=== PATIENT | female | born 1965 | race Caucasian/White ===

== ENCOUNTER 2017-01-12 16:35 | Emergency (ER) | payer OTHER ==
[~2017-01-12 16:35] MED LIST: ALBUTEROL0.09 MG/A2 INH; AMOXICILLIN500 MG PO; ANTIVERT/2525 MG PO; CIPROFLOXACIN500 MG PO; DIFLUCAN150 MG PO; FLEXERIL10 MG PO; HYDROCODONE BIT1 T11 PO; LIDEX0.05% T; MEDROL DOSEPAK4 MG PO; MIRALAX POWDER17 G1 PO; MOTRIN800 MG PO; NAPROSYN500 MG PO; NKHM; PERCOCET 325 MG1 TA2 PO; PHENERGAN25 M1 PO; PREDNICOT20 MG PO; TESSALON PERLE100 M1 PO; VIBRAMYCIN100 MG PO; VICODIN 5/500 505 MG PO; ZOFRAN ODT4 MG SL; ZOFRAN4 MG PO
[2017-01-12 16:36] VITALS: BP 141/83
[2017-01-12] MEDS ORDERED: NEURONTIN300 MG PO (16:36)
[2017-01-12] MEDS ORDERED: METHYLPRED-DP4 MG PO (16:37)
[2017-01-12 17:13] LABS: BASO # 0.1 10*3/uL (0.0-0.1); BASO % 0.6 % (0.0-1.0); EOS % 0.3 % (1.0-4.0); HEMATOCRIT 42.6 % (37.0-47.0); HEMOGLOBIN 13.9 g/dl (12.0-16.0); LYMPH # 4.2 10*3/uL (1.3-4.4); LYMPH % 38.6 % (27.0-41.0); MEAN CELL VOLUME 90.8 fl (81.0-99.0); MEAN CORPUSCULAR HGB 29.6 pg (27.0-31.0); MEAN CORPUSCULAR HGB CONC 32.6 g/dl (33.0-37.0); MEAN PLATELET VOLUME 10.8 fl (9.6-12.3); MONO # 0.6 10*3/uL (0.1-1.0); MONO % 5.1 % (3.0-9.0); NEUT % 55.1 % (47.0-73.0); PLATELET COUNT AUTOMATED 281 10*3/uL (130-400); RED BLOOD COUNT 4.69 10*6/uL (4.10-5.10); RED CELL DISTRI WIDTH 13.4 % (0-14.5); WHITE BLOOD COUNT 10.9 10*3/uL (4.8-10.8)
[2017-01-12 17:20] LABS: PROTHROMBIN TIME 10.4 SECONDS (9.0-12.4)
[2017-01-12 17:28] LABS: ALBUMIN 3.8 gm/dl (3.1-4.5); ALKALINE PHOSPHATASE 54 U/L (45-117); BILIRUBIN, TOTAL 0.9 mg/dl (0.2-1.0); BUN 13 mg/dl (7-24); CARBON DIOXIDE 29 mmol/L (21-32); CHLORIDE 106 mmol/L (98-107); EST GLOM FILT AFRICAN AMERICAN > 60 ml/min; GLUCOSE 141 mg/dL (65-99); POTASSIUM 3.8 mmol/L (3.5-5.1); SGOT/AST 18 IU/L (3-35); SGPT/ALT 30 U/L (12-78); SODIUM 143 mmol/L (136-145); TOTAL PROTEIN 7.4 gm/dL (6.4-8.2)
== END 2017-01-12 18:46 | disposition home or self-care (01) ==
LOC: ED 16:35
PROVIDERS: Nurse Practitioner Family
DX: R60.0 Localized edema (principal); Z88.6 Allergy status to analgesic agent; Z90.49 Acquired absence of other specified parts of digestive tract; Z79.899 Other long term (current) drug therapy

== ENCOUNTER → 2017-01-29 | Outpatient (CLI) | payer OTHER ==
[~2017-01-29] MED LIST changes: +METHYLPRED-DP4 MG PO; +NEURONTIN300 MG PO
[2017-01-29 14:51] LABS: BASO # 0.1 10*3/uL (0.0-0.1); BASO % 0.9 % (0.0-1.0); EOS # 0.3 10*3/uL (0.0-0.4); EOS % 3.3 % (1.0-4.0); HEMATOCRIT 42.5 % (37.0-47.0); HEMOGLOBIN 14.1 g/dl (12.0-16.0); LYMPH # 3.6 10*3/uL (1.3-4.4); LYMPH % 46.8 % (27.0-41.0); MEAN CELL VOLUME 90.2 fl (81.0-99.0); MEAN CORPUSCULAR HGB 29.9 pg (27.0-31.0); MEAN CORPUSCULAR HGB CONC 33.2 g/dl (33.0-37.0); MEAN PLATELET VOLUME 10.7 fl (9.6-12.3); MONO # 0.5 10*3/uL (0.1-1.0); MONO % 6.2 % (3.0-9.0); NEUT # 3.2 10*3/uL (2.3-7.9); NEUT % 42.7 % (47.0-73.0); PLATELET COUNT AUTOMATED 277 10*3/uL (130-400); RED BLOOD COUNT 4.71 10*6/uL (4.10-5.10); RED CELL DISTRI WIDTH 13.1 % (0-14.5); WHITE BLOOD COUNT 7.6 10*3/uL (4.8-10.8)
[2017-01-29 15:07] LABS: ALBUMIN 3.9 gm/dl (3.1-4.5); ALKALINE PHOSPHATASE 63 U/L (45-117); BILIRUBIN, TOTAL 0.9 mg/dl (0.2-1.0); BUN 15 mg/dl (7-24); CARBON DIOXIDE 27 mmol/L (21-32); CHLORIDE 109 mmol/L (98-107); CHOLESTEROL 203 mg/dL (<200); EST GLOM FILT AFRICAN AMERICAN > 60 ml/min; GLUCOSE 92 mg/dL (65-99); HDL CHOLESTEROL 44 mg/dl (40-60); LDL CHOLESTEROL 129 mg/dL (9-159); POTASSIUM 4.3 mmol/L (3.5-5.1); SGOT/AST 24 IU/L (3-35); SGPT/ALT 32 U/L (12-78); SODIUM 143 mmol/L (136-145); TOTAL PROTEIN 7.7 gm/dL (6.4-8.2); TRIGLYCERIDES 149 mg/dl (<150); VLDL CHOLESTEROL 30 mg/dL (6-40)
[2017-01-31 00:09] LABS: FECAL WBC Final report (None Seen)
== END | disposition home or self-care (01) ==
LOC: LAB 13:48
PROVIDERS: Internal Medicine
DX: Z01.419 Encounter for gynecological examination (general) (routine) without abnormal findings (principal); K52.9 Noninfective gastroenteritis and colitis, unspecified; E66.01 Morbid (severe) obesity due to excess calories; I10 Essential (primary) hypertension

== ENCOUNTER → 2017-02-01 | Outpatient (CLI) | payer OTHER | END | disposition home or self-care (01) | LOC: MAMMO 00:37 | DX: Z12.31 Encounter for screening mammogram for malignant neoplasm of breast (principal) ==

== ENCOUNTER → 2017-02-08 | Day surgery (SDC) | payer OTHER ==
[~2017-02-08] VITALS: Ht 160 cm; Wt 113.4 kg
[~2017-02-08] MED LIST changes: +GAVILYTE-G WI4000 M1 PO
--- NOTE | ~2017-02-08 | PROC NOTE ---
[place], [place] PROCEDURE NOTE NAME: DONAVAN STANFORD UNIT #: [id number] ROOM: DOCTOR: MAX GOMEZ MD BIRTHDATE: [birth year] DOS: 02/08/2017 PREOPERATIVE DIAGNOSIS: Chronic diarrhea. POSTOPERATIVE DIAGNOSIS: Sigmoid polyps, diverticulosis, internal hemorrhoids. PROCEDURE: Colonoscopy. ENDOSCOPIST: Max Gomez MD NETWORK CONTRACT MANAGER: MS3. ANESTHESIA: MAC. INDICATIONS: This is a 51-year-old lady who is here for a colonoscopy for chronic diarrhea. The procedure and its complications were explained to the patient in detail preoperatively. Complications that were discussed included but were not limited to bleeding, colon perforation, and prolonged pain. She agreed to proceed. DESCRIPTION OF PROCEDURE: After identifying the patient, the patient was brought to the endoscopy suite and placed in the left lateral position. After IV sedation was administered, a timeout procedure was called and a digital rectal exam was performed, which was within normal limits. An adult colonoscope was now introduced into the anal canal and advanced sequentially into the rectum, sigmoid colon, descending colon, transverse colon and ascending colon up to the cecum. The prep was found to be optimal. Upon reaching the cecum, the scope was withdrawn. Total withdrawal time was approximately 7 minutes. During the procedure withdrawal, there was mild sigmoid diverticulosis that was visualized as well as 2 small polyps that were visualized at 25 cm from the anal verge. Both of these were biopsied and sent for histopathological diagnosis. After hemostasis was confirmed, the scope was withdrawn and upon withdrawal in the rectal area, there was found to be uncomplicated internal hemorrhoids. After the scope was withdrawn, the patient was taken to the recovery room in stable fashion. There were no complications. Dr. Max Gomez, the attending surgeon, was present throughout the operating case. Based on these findings, the patient is recommended to have another colonoscopy in 3 years or sooner if she has any symptoms. I will discuss these findings with the patient when she sees me in the office in 2-3 weeks. [place], [place] PROCEDURE NOTE NAME: DONAVAN STANFORD UNIT #: [id number] ROOM: DOCTOR: MAX GOMEZ MD BIRTHDATE: [birth year] Max Gomez MD CM:MEMO:PROCEDURE NOTE [id number] MAX GOMEZ MD
[2017-02-08 07:47] VITALS: BP 131/75
[2017-02-08 08:25] VITALS: BP 131/70
[2017-02-08 08:40] VITALS: BP 120/72
[2017-02-08 08:55] VITALS: BP 131/72
== END | disposition home or self-care (01) ==
LOC: SDC 02-07 08:45
DX: K63.5 Polyp of colon (principal); K52.9 Noninfective gastroenteritis and colitis, unspecified; K57.30 Diverticulosis of large intestine without perforation or abscess without bleeding; K64.8 Other hemorrhoids; M19.90 Unspecified osteoarthritis, unspecified site; F32.9 Major depressive disorder, single episode, unspecified; Z87.01 Personal history of pneumonia (recurrent); M79.7 Fibromyalgia; Z96.652 Presence of left artificial knee joint; Z98.890 Other specified postprocedural states

== ENCOUNTER 2017-02-11 11:35 | Emergency (ER) | payer OTHER ==
[~2017-02-11] VITALS: Wt 117.9 kg
[~2017-02-11 11:35] MED LIST changes: -GAVILYTE-G WI4000 M1 PO
[2017-02-11 11:58] VITALS: BP 155/98
[2017-02-11] MEDS ORDERED: METHYLPRED-DP4 MG PO (11:58)
[2017-02-11] MEDS ORDERED: GAVILYTE-G WI4000 M1 PO (11:58)
[2017-02-11 12:59] LABS: ALBUMIN 3.8 gm/dl (3.1-4.5); ALKALINE PHOSPHATASE 67 U/L (45-117); BASO # 0.1 10*3/uL (0.0-0.1); BASO % 0.9 % (0.0-1.0); BILIRUBIN, TOTAL 0.6 mg/dl (0.2-1.0); BUN 9 mg/dl (7-24); CARBON DIOXIDE 29 mmol/L (21-32); CHLORIDE 105 mmol/L (98-107); EOS # 0.2 10*3/uL (0.0-0.4); EOS % 3.2 % (1.0-4.0); EST GLOM FILT AFRICAN AMERICAN > 60 ml/min; GLUCOSE 99 mg/dL (65-99); HEMATOCRIT 43.7 % (37.0-47.0); HEMOGLOBIN 14.5 g/dl (12.0-16.0); LYMPH % 52.9 % (27.0-41.0); MEAN CELL VOLUME 89.4 fl (81.0-99.0); MEAN CORPUSCULAR HGB 29.7 pg (27.0-31.0); MEAN CORPUSCULAR HGB CONC 33.2 g/dl (33.0-37.0); MONO # 0.5 10*3/uL (0.1-1.0); MONO % 6.1 % (3.0-9.0); NEUT # 2.8 10*3/uL (2.3-7.9); NEUT % 36.8 % (47.0-73.0); PLATELET COUNT AUTOMATED 300 10*3/uL (130-400); POTASSIUM 4.2 mmol/L (3.5-5.1); RED BLOOD COUNT 4.89 10*6/uL (4.10-5.10); SGOT/AST 26 IU/L (3-35); SGPT/ALT 34 U/L (12-78); SODIUM 142 mmol/L (136-145); WHITE BLOOD COUNT 7.6 10*3/uL (4.8-10.8)
[2017-02-11 14:16] LABS: BILIRUBIN NEGATIVE (NEGATIVE); BLOOD NEGATIVE (NEGATIVE); CLARITY CLEAR (CLEAR); COLOR YELLOW (YELLOW); GLUCOSE NEGATIVE (NEGATIVE); KETONE NEGATIVE (NEGATIVE); LEUKO ESTERASE NEGATIVE (NEGATIVE); NITRITE NEGATIVE (NEGATIVE); PROTEIN NEGATIVE (NEGATIVE); SPECIFIC GRAVITY 1.015 (1.005-1.030); UROBILINOGEN 0.2 E.U./dl (0.2-1.0)
[2017-02-11 14:23] LABS: URINE REFLEX COMMENT NO (NO); WBC 0-2 wbc/hpf (0-5)
== END 2017-02-11 15:04 | disposition home or self-care (01) ==
LOC: ED 11:35
PROVIDERS: Emergency Medicine
DX: M25.552 Pain in left hip (principal); Z88.6 Allergy status to analgesic agent; Z90.49 Acquired absence of other specified parts of digestive tract

== ENCOUNTER 2017-03-23 11:58 | Inpatient (IN) | payer OTHER ==
[2017-03-23] VITALS (7 sets, daily range): BP systolic 128–162; BP diastolic 61–98
[~2017-03-23] VITALS: Ht 160 cm; Wt 116.1 kg
--- NOTE | ~2017-03-23 | O ---
[place], [place] OPERATIVE NOTE NAME: DONAVAN STANFORD UNIT #: [id number] ROOM: 520 DOCTOR: KELLY AGUILAR,PEREZ BIRTHDATE: [birth year] DOS: 03/27/2017 INDICATIONS: The patient has presented with atypical chest pain and epigastric distress. Cardiologic workup, stress test has been negative. The patient has been taking an Aleve daily. PAST MEDICAL HISTORY: Also associated with fibromyalgia. PROCEDURE: Today's procedure part of investigation is panendoscopy plus biopsy. PREMEDICATION: Versed and Diprivan. SCOPE: Olympus forward-viewing gastroscope Q10 video. REPORT: After putting the patient in the left lateral position and after application of lubricant to the scope, the scope was introduced. Thereafter, under direct visualization, I advanced through the length of esophagus without difficulty. Cervical, thoracic, and distal esophagus within normal limits. At 2 cm, hiatal hernia was identified. Gastric pouch was entered along the lesser curvature. Antral erosions secondary to Aleve, nonsteroidal anti-inflammatory identified. Duodenal bulb, second and third part within normal limits. Scope was withdrawn along the greater curvature. GI reflection of the scope reveals cardia to be benign, hiatal hernia confirmed. Photographic series obtained. Antral biopsy was obtained. Erosions documented. The patient was extubated after air was removed. IMPRESSION: Small hiatal hernia, gastritis, gastric erosions. PLAN AND DISCUSSION: Protonix 40 mg 1 every day. Gaviscon extra strength 1 at bedtime. Antireflux with elevation of the head of the bed 6 inches all time. Abstinence from solid food ingestion 5 hours prior to retiring and clinical reassessment. PEREZ MENDOZA MD CM:OPRECORD:OPERATIVE NOTE 1132 [id number] PEREZ MENDOZA MD 03/27/17 1152 interface
--- NOTE | ~2017-03-23 | PR ---
[place], [place] PROGRESS NOTE [id number] UNIT #: [id number] ROOM: 520 DOCTOR: NIXON MOREIRAWILLI BIRTHDATE: [birth year] DOS: 03/26/2017 SUBJECTIVE: This is a 51-year-old female who was seen and evaluated today. Upon assessment the patient is noted awake and alert and responsive. She denies any complaints of nausea, vomiting, diarrhea, dizziness, shortness of breath. The patient stated she continues with right-sided chest pain, stating it is intermittent in nature with no other accompanying symptoms. OBJECTIVE: VITAL SIGNS: Current vital signs included a temperature of 98.2, pulse 51, respirations 20, blood pressure 149/85, pulse oximetry 99% on room air. GENERAL: The patient is noted awake and alert, no acute distress noted. HEENT: Head normocephalic, atraumatic. Eyes: No drainage. Sclerae are nonicteric, no drainage. ENT: Oropharynx is clear. Septum is midline. No scars or masses noted. NECK: Noted without lesions. Trachea is midline, supple, nontender. RESPIRATORY: Lungs are noted to be diminished. No wheezing, no rhonchi. Breath sounds are noted normal and the patient is noted without any respiratory distress. CARDIAC: The patient is noted have regular rate and rhythm. No gallops. No pedal edema noted in the lower extremities. ABDOMEN: Soft, nontender. Bowel sounds are present. No rebounding or guarding. EXTREMITIES: Noted without edema, erythema, cyanosis or clubbing. NEUROLOGICAL: The patient is noted awake and alert, ambulates without difficulty. No focal deficit is noted. Cranial nerves 2-12 are noted grossly intact. PSYCHOLOGICAL: The patient is noted to be a good historian exhibits normal affect. SKIN: Warm and dry, no rashes, no lesions. LABORATORY DATA: WBC 8.3, RBC 4.98, hemoglobin 14.5, hematocrit 44.9, platelets of 261. Sodium 139, potassium 4.2, chloride 102, CO2 of 32, BUN 21, creatinine 0.88, GFR greater than 60, glucose of 107, and calcium 9.1. DIAGNOSTIC STUDIES: EKG was noted completed with left ventricle noted normal size, mild concentric left ventricular hypertrophy, normal LV segmental wall motion, left ventricular systolic function is normal. Stress test noted with no evidence of ischemia. The patient noted with a low-risk myocardial perfusion examination. ASSESSMENT AND PLAN: 1. Chest pain, rule out acute myocardial infarction. 2. Abdominal pain. 3. Hypertension. 4. Depression. 5. Obesity. TREATMENT PLAN: The patient continues to be n.p.o. today as the echo and stress test were performed waiting on Dr. Copeland for EGD. We will continue to monitor. [place], [place] PROGRESS NOTE NAME: DONAVAN STANFORD UNIT #: [id number] ROOM: [facility] DOCTOR: WILLI MEYERS RN BIRTHDATE: [birth year] NEGRITO ODONNELL MARYSE DEE DO CM:PNTRANS [id number] WILLI MOREIRA 03/26/17 1414 interface
--- NOTE | ~2017-03-23 | CON ---
[place], [place] REPORT OF CONSULTATION NAME: DONAVAN STANFORD UNIT #: [id number] ROOM: 520 DOCTOR: PEREZ MENDOZA MD BIRTHDATE: [birth year] DOS: HISTORY OF PRESENT ILLNESS: This is a 51-year-old who has presented with chief complaint of atypical chest pain, parasternal, subxiphoid location. The patient has been on Aleve daily and no antiacid medications. The patient had a panel of basic workup done, white blood cell was 8, H and H of 14 and 43. Lactic acid was 2.2. INR was 1.1. Comprehensive metabolic panel, GFR is within normal limits. Magnesium is 2.3. Liver function test, bilirubin is 1.4. C-reactive protein is 0.3. Troponin was normal. Chest x-ray reviewed, no acute pathology was identified. Lactic acid followup 1.2. CT scan of the head, no acute intracranial pathology. Troponin serially was done and was all within normal limits. Myocardial SPECT study was done and note no significant evidence of ischemia or myocardial insult was identified. White blood cell count was within normal limits. PAST MEDICAL HISTORY: Associated hypertension, depression, fibromyalgia, gait disturbances was noticed, also associated borderline obesity. PAST SURGICAL HISTORY: , ablation, cholecystectomy, tonsillectomy, left knee prosthesis. SOCIAL HISTORY: Only consuming marijuana. ALLERGIES: MORPHINE AND TAPE. FAMILY HISTORY: Noncontributory. MEDICATIONS: List has been reviewed in addition to Aleve daily. REVIEW OF SYSTEMS: HEENT: Denies double vision, blurred vision. RESPIRATORY: Denies shortness of breath. CARDIOVASCULAR: Denies chest pain. DIGESTIVE SYSTEM: Epigastric parasternal pain. PHYSICAL EXAMINATION: VITAL SIGNS: Nondistressed, nontoxic patient. HEENT: Head normocephalic, nontraumatic. Mouth and buccal mucosa benign. NECK: Supple, no thyromegaly, no cervical lymphadenopathy. CHEST: Symmetric anatomy, equal expansion. No wheeze, no rhonchi. HEART: Normal sinus rhythm, no gallop, no murmur. ABDOMEN: Obese, large, soft. No hepato-organomegaly. Bowel sounds present. EXTREMITIES: No cyanosis. No pedal edema. NEUROLOGIC: Alert, oriented to time, place, person. IMPRESSION: Atypical chest pain, ruling out hiatal hernia, ruling out gastroesophageal reflux versus peptic ulcer disease, on the other hand, dysmotility is kept in mind. PLAN AND DISCUSSION: We are going to consider endoscopic assessment and if [place], [place] REPORT OF CONSULTATION NAME: DONAVAN STANFORD UNIT #: [id number] ROOM: [facility] DOCTOR: PEREZ MENDOZA MD BIRTHDATE: [birth year] negative, then differential would be adjusted. PEREZ MENDOZA MD CM:CONSTR:REPORT OF CONSULTATION 1118 03/27/17 1706 interface
--- NOTE | ~2017-03-23 | CON ---
[place], [place] REPORT OF CONSULTATION NAME: DONAVAN STANFORD UNIT #: [id number] ROOM: 520 DOCTOR: PHIL MORE MD BIRTHDATE: [birth year] DOS: 03/25/2017 Referred by the hospitalist physicians and Dr. Landin. REASON FOR CONSULTATION: Chest pain. HISTORY OF PRESENT ILLNESS: The patient is a 51-year-old woman without any previous history of coronary artery disease. She does have risk factors of obesity, hypertension, and prediabetes. She does not have any first degree relatives with early coronary disease and does not smoke. The patient states that for the last few months, she has had problems with peripheral edema and was noted to have hypertension. She was placed on a thiazide diuretic with improvement of her edema and blood pressure control. She was otherwise well until 03/23/2017. She had just finished a small meal and taken her medications when she noticed a sharp pain in the center of her chest, which did not radiate. It was associated with diaphoresis and lightheadedness, but no nausea or vomiting. The pain was not pleuritic. The patient sat still and did not take deep breaths or eat or drink anything while she had the pain. The pain resolved spontaneously after about an hour. She became concerned and came to the emergency room where her electrocardiogram was normal and serial cardiac biomarkers have been normal as well. On March 24, she had a similar pain at rest without eating. The pain resolved spontaneously after about 30 minutes. Currently, the patient is comfortable, although she does occasionally get a pressure sensation in her chest at rest. She was given an antacid since admission and states that this has helped somewhat. PAST MEDICAL HISTORY: Includes 1. Recently documented essential hypertension. 2. Peripheral edema, which resolved with hydrochlorothiazide therapy. 3. History of right hydronephrosis and kidney surgery. 4. Status post cholecystectomy. 5. History of left knee surgery on 2 occasions. 6. Tonsillectomy. 7. Prediabetes with hemoglobin A1c 6.4. 8. History of depression. 9. No previous history of myocardial infarction or stroke. MEDICATIONS: Prior to admission, gabapentin 300 mg t.i.d., hydrochlorothiazide 25 mg daily and venlafaxine 75 mg daily. ALLERGIES: The patient has allergies to TAPE and MORPHINE. FAMILY HISTORY: The patient's mother had transient ischemic attacks. Her father of cancer in his mid 50s. He did not have a history of heart disease. An aunt had a brain aneurysm, another aunt of complications of diabetes. [place], [place] REPORT OF CONSULTATION NAME: DONAVAN STANFORD UNIT #: [id number] ROOM: [facility] DOCTOR: PHIL MORE MD BIRTHDATE: [birth year] REVIEW OF SYSTEMS: The patient denies diplopia, loss of vision, or focal weakness. She has had mild headache. She denies nausea or vomiting. She denies fevers, chills, sweats or recent weight change; however, she has been gradually losing weight over the last few months intentionally. She denies nausea or vomiting. She denies fevers or chills. She denies hemoptysis or hematemesis. She denies cough. She denies change in bowel or bladder habits. She denies any blood in her urine or stools. She has had recent peripheral edema, but this has improved since she started hydrochlorothiazide. She denies any skin rashes. She does have pain in her left hip which she attributes to arthritis and a hip spur. She denies any syncope, but did feel lightheaded. She denies vertigo. The remainder of the review of systems is negative except as noted above. SOCIAL HISTORY: The patient does not smoke, but she has used marijuana. She does not consume alcohol. PHYSICAL EXAMINATION: GENERAL: The patient is an overweight white female who is awake, alert and oriented. VITAL SIGNS: Pulse is 52 and regular, blood pressure is 134/83. She weighs 116 kg and has a body mass index of 45.3. HEENT: Normocephalic, atraumatic. Extraocular muscles are intact. Sclerae are clear. Pupils are equal, round and reactive to light. The oral mucosa is moist. Tongue is midline. NECK: Supple. She has no jugular distention. Carotids are full. I heard no bruits. She had no neck or supraclavicular masses and no thyromegaly. LUNGS: Respirations are unlabored. Her chest is clear to auscultation and percussion. She has no presacral edema or chest wall tenderness. HEART: Has a regular rhythm. She has a fourth heart sound, but no third heart sound or murmurs. The PMI is not displaced. She has no precordial heave, lift or thrill. ABDOMEN: Soft and normally active without masses, organomegaly or bruits. EXTREMITIES: Showed no edema. Peripheral pulses are easily palpated in her feet. LABORATORY DATA: I reviewed her electrocardiogram, which showed sinus rhythm and was a normal tracing. As noted, serial cardiac biomarkers have been unremarkable. Her hemoglobin A1c is elevated at 6.4. IMPRESSIONS: 1. Precordial chest pain, etiology to be determined. This could represent unstable angina; however characteristics of the pain are not typical. It could also represent dyspepsia, esophageal spasm, etc. 2. Obesity. 3. Prediabetes. 4. Essential hypertension. PLAN: An echocardiogram has been ordered to determine if she has diastolic dysfunction or regional wall motion abnormalities. I think that further evaluation with a pharmacologic stress test is appropriate. The patient cannot [place], [place] REPORT OF CONSULTATION NAME: DONAVAN STANFORD UNIT #: [id number] ROOM: [facility] DOCTOR: PHIL MORE MD BIRTHDATE: [birth year] walk for stress test because of hip and knee pain. We will proceed with the pharmacologic stress test as soon as it can be arranged with further recommendations to follow after that. For now, she will be treated as though this is dyspepsia since her electrocardiogram and cardiac biomarkers have been normal. We thank the hospitalist group for asking our advice regarding her care. PHIL MORE MD CM:CONSTR:REPORT OF CONSULTATION 0948 03/25/17 1126 interface
--- NOTE | ~2017-03-23 | PR ---
[place], [place] PROGRESS NOTE NAME: DONAVAN STANFORD [facility] #: [id number] UNIT #: [id number] ROOM: 520 DOCTOR: PHIL MORE MD BIRTHDATE: [birth year] DOS: 03/26/2017 CARDIOLOGY FOLLOWUP VISIT SUBJECTIVE: The patient was seen today at her bedside for followup of epigastric pain. She is a 51-year-old woman without any previously documented coronary artery disease, who has risk factors of obesity, hypertension, and prediabetes. She presented to the hospital with epigastric pain and ruled out for myocardial infarction. Yesterday, her echocardiogram showed normal left ventricular size, wall motion, and systolic function with an ejection fraction between 60% and 65% and stage 1 diastolic relaxation abnormalities. She did have mild concentric left ventricular hypertrophy. A pharmacologic stress test showed an ejection fraction of 68%. No transient left ventricular cavity dilation and no evidence for ischemia. The patient did have diaphragmatic attenuation artifact. Overnight, the patient continues to have epigastric pain, but not as severe as it was prior to admission. She is supposed to have an endoscopy sometime during this hospitalization, although reportedly it will not be able to occur today. PHYSICAL EXAMINATION: GENERAL: She is an overweight white female who is awake, alert, and oriented. VITAL SIGNS: Pulse is 50 and regular, blood pressure /85. She is afebrile. She weighs 116.1 kilograms with a body mass index 45.3. NECK: Supple. She has no jugular distention. Carotids are full. LUNGS: Respirations are unlabored. CHEST: Clear to auscultation and percussion. She has no presacral edema. HEART: Has a regular rhythm. She has a fourth heart sound, but no third heart sound or murmur. The PMI is not displaced. There is no precordial heave, lift, or thrill. I could not reproduce her pain by palpation of her chest. ABDOMEN: Soft and normally active. No masses or organomegaly are present. EXTREMITIES: Showed no edema. There were no palpable cords or Homans sign. IMPRESSION: 1. Noncardiac chest pain. 2. Obesity. 3. Prediabetes. 4. Essential hypertension. PLAN: No other cardiac workup is planned at this time. Cardiology will sign off, but remain available as needed. The patient was advised to control her risk factors as much as possible with exercise, diet, weight loss, etc. I thank the hospitalist group for asking our advice regarding her care. [place], [place] PROGRESS NOTE NAME: DONAAVN STANFORD UNIT #: [id number] ROOM: 520 DOCTOR: PHIL MORE MD BIRTHDATE: [birth year] PHIL MORE MD CM:PNTRANS [phone] PHIL MORE MD 03/26/17 1057 interface
[~2017-03-23 11:58] MED LIST changes: +GAVILYTE-G WI4000 M1 PO
[2017-03-23 12:35] LABS: BILIRUBIN NEGATIVE (NEGATIVE); BLOOD TRACE-INTACT (NEGATIVE); CLARITY CLEAR (CLEAR); COLOR YELLOW (YELLOW); GLUCOSE NEGATIVE (NEGATIVE); KETONE NEGATIVE (NEGATIVE); LEUKO ESTERASE NEGATIVE (NEGATIVE); NITRITE NEGATIVE (NEGATIVE); PH 6.5 (5.0-9.0); PROTEIN NEGATIVE (NEGATIVE); SPECIFIC GRAVITY 1.015 (1.005-1.030); UROBILINOGEN 0.2 E.U./dl (0.2-1.0)
[2017-03-23 12:44] LABS: BASO # 0.1 10*3/uL (0.0-0.1); BASO % 0.9 % (0.0-1.0); EOS # 0.1 10*3/uL (0.0-0.4); EOS % 1.6 % (1.0-4.0); HEMATOCRIT 43.6 % (37.0-47.0); HEMOGLOBIN 14.4 g/dl (12.0-16.0); LYMPH # 3.2 10*3/uL (1.3-4.4); LYMPH % 40.2 % (27.0-41.0); MEAN CELL VOLUME 88.8 fl (81.0-99.0); MEAN CORPUSCULAR HGB 29.3 pg (27.0-31.0); MEAN PLATELET VOLUME 10.6 fl (9.6-12.3); MONO # 0.6 10*3/uL (0.1-1.0); MONO % 7.1 % (3.0-9.0); NEUT % 50.1 % (47.0-73.0); PLATELET COUNT AUTOMATED 262 10*3/uL (130-400); RED BLOOD COUNT 4.91 10*6/uL (4.10-5.10); RED CELL DISTRI WIDTH 13.5 % (0-14.5)
[2017-03-23 12:44] LABS: MUCOUS 1+; URINE REFLEX COMMENT NO (NO)
[2017-03-23 12:55] LABS: PROTHROMBIN TIME 10.2 SECONDS (9.0-12.4)
[2017-03-23 13:04] LABS: ALBUMIN 3.9 gm/dl (3.1-4.5); ALKALINE PHOSPHATASE 76 U/L (45-117); BILIRUBIN, TOTAL 1.4 mg/dl (0.2-1.0); BUN 13 mg/dl (7-24); C-REACTIVE PROTEIN 0.43 MG/DL (0-0.3); CARBON DIOXIDE 23 mmol/L (21-32); CHLORIDE 106 mmol/L (98-107); CPK 93 U/L (26-192); EST GLOM FILT AFRICAN AMERICAN > 60 ml/min; GLUCOSE 144 mg/dL (65-99); MAGNESIUM 2.3 mg/dL (1.5-2.1); POTASSIUM 3.9 mmol/L (3.5-5.1); SGOT/AST 21 IU/L (3-35); SGPT/ALT 26 U/L (12-78); SODIUM 138 mmol/L (136-145); TOTAL PROTEIN 7.7 gm/dL (6.4-8.2)
[2017-03-23 13:22] LABS: CKMB < 0.5 ng/ml (0.5-3.6); TROPONIN I < 0.015 ng/ml (<0.045)
[2017-03-23 14:41] LABS: LA>2 REFLEX 2 HR DRAW NOW
[2017-03-23] MEDS ORDERED: EFFEXOR XR75 M1 PO (15:06)
[2017-03-23] MEDS ORDERED: HYDR25T PO (15:07)
[2017-03-24] VITALS: BP 119/56
[2017-03-24 06:30] LABS: BASO # 0.1 10*3/uL (0.0-0.1); BASO % 0.8 % (0.0-1.0); EOS # 0.2 10*3/uL (0.0-0.4); EOS % 2.3 % (1.0-4.0); HEMATOCRIT 41.5 % (37.0-47.0); HEMOGLOBIN 13.9 g/dl (12.0-16.0); LYMPH # 3.4 10*3/uL (1.3-4.4); LYMPH % 40.4 % (27.0-41.0); MEAN CELL VOLUME 90.2 fl (81.0-99.0); MEAN CORPUSCULAR HGB 30.2 pg (27.0-31.0); MEAN CORPUSCULAR HGB CONC 33.5 g/dl (33.0-37.0); MEAN PLATELET VOLUME 10.9 fl (9.6-12.3); MONO # 0.7 10*3/uL (0.1-1.0); MONO % 8.6 % (3.0-9.0); NEUT % 47.7 % (47.0-73.0); PLATELET COUNT AUTOMATED 255 10*3/uL (130-400); RED CELL DISTRI WIDTH 13.7 % (0-14.5); WHITE BLOOD COUNT 8.4 10*3/uL (4.8-10.8)
[2017-03-24 06:48] LABS: HEMOGLOBIN A1c 6.4 % (4.8-5.6)
[2017-03-24 06:53] LABS: ALBUMIN 3.6 gm/dl (3.1-4.5); ALKALINE PHOSPHATASE 72 U/L (45-117); BILIRUBIN, TOTAL 1.1 mg/dl (0.2-1.0); BUN 17 mg/dl (7-24); CARBON DIOXIDE 26 mmol/L (21-32); CHLORIDE 105 mmol/L (98-107); EST GLOM FILT AFRICAN AMERICAN > 60 ml/min; GLUCOSE 102 mg/dL (65-99); POTASSIUM 4.3 mmol/L (3.5-5.1); SGOT/AST 21 IU/L (3-35); SGPT/ALT 26 U/L (12-78); SODIUM 141 mmol/L (136-145); TOTAL PROTEIN 6.9 gm/dL (6.4-8.2)
[2017-03-24 08:00] VITALS: BP 126/86; BP 128/80
[2017-03-24 12:00] VITALS: BP 139/85
[2017-03-24 16:00] VITALS: BP 155/82
[2017-03-24 20:00] VITALS: BP 126/80
[2017-03-25] VITALS: BP 134/83
[2017-03-25 06:47] LABS: BASO # 0.1 10*3/uL (0.0-0.1); EOS # 0.3 10*3/uL (0.0-0.4); EOS % 3.3 % (1.0-4.0); HEMATOCRIT 41.4 % (37.0-47.0); HEMOGLOBIN 13.6 g/dl (12.0-16.0); LYMPH # 3.8 10*3/uL (1.3-4.4); LYMPH % 41.9 % (27.0-41.0); MEAN CELL VOLUME 89.6 fl (81.0-99.0); MEAN CORPUSCULAR HGB 29.4 pg (27.0-31.0); MEAN CORPUSCULAR HGB CONC 32.9 g/dl (33.0-37.0); MEAN PLATELET VOLUME 10.7 fl (9.6-12.3); MONO # 0.7 10*3/uL (0.1-1.0); MONO % 8.1 % (3.0-9.0); NEUT # 4.2 10*3/uL (2.3-7.9); NEUT % 45.5 % (47.0-73.0); PLATELET COUNT AUTOMATED 249 10*3/uL (130-400); RED BLOOD COUNT 4.62 10*6/uL (4.10-5.10); RED CELL DISTRI WIDTH 13.3 % (0-14.5); WHITE BLOOD COUNT 9.1 10*3/uL (4.8-10.8)
[2017-03-25 07:13] LABS: ALBUMIN 3.3 gm/dl (3.1-4.5); ALKALINE PHOSPHATASE 73 U/L (45-117); BILIRUBIN, DIRECT 0.1 mg/dL (0.0-0.2); BILIRUBIN, TOTAL 0.6 mg/dl (0.2-1.0); BUN 19 mg/dl (7-24); CARBON DIOXIDE 28 mmol/L (21-32); CHLORIDE 103 mmol/L (98-107); EST GLOM FILT AFRICAN AMERICAN > 60 ml/min; GLUCOSE 117 mg/dL (65-99); POTASSIUM 4.1 mmol/L (3.5-5.1); SGOT/AST 14 IU/L (3-35); SGPT/ALT 22 U/L (12-78); SODIUM 138 mmol/L (136-145); TOTAL PROTEIN 7.1 gm/dL (6.4-8.2)
[2017-03-25 12:00] VITALS: BP 146/90
[2017-03-25 16:00] VITALS: BP 119/67
[2017-03-25 20:00] VITALS: BP 141/92
[2017-03-26] VITALS: BP 121/75
[2017-03-26 07:46] LABS: BASO # 0.1 10*3/uL (0.0-0.1); EOS # 0.3 10*3/uL (0.0-0.4); EOS % 3.6 % (1.0-4.0); HEMATOCRIT 44.9 % (37.0-47.0); HEMOGLOBIN 14.5 g/dl (12.0-16.0); LYMPH # 3.4 10*3/uL (1.3-4.4); LYMPH % 41.1 % (27.0-41.0); MEAN CELL VOLUME 90.2 fl (81.0-99.0); MEAN CORPUSCULAR HGB 29.1 pg (27.0-31.0); MEAN CORPUSCULAR HGB CONC 32.3 g/dl (33.0-37.0); MEAN PLATELET VOLUME 10.9 fl (9.6-12.3); MONO # 0.7 10*3/uL (0.1-1.0); MONO % 8.6 % (3.0-9.0); NEUT # 3.8 10*3/uL (2.3-7.9); NEUT % 45.3 % (47.0-73.0); PLATELET COUNT AUTOMATED 261 10*3/uL (130-400); RED BLOOD COUNT 4.98 10*6/uL (4.10-5.10); RED CELL DISTRI WIDTH 13.5 % (0-14.5); WHITE BLOOD COUNT 8.3 10*3/uL (4.8-10.8)
[2017-03-26 08:00] VITALS: BP 149/85
[2017-03-26 08:04] LABS: BUN 21 mg/dl (7-24); CARBON DIOXIDE 32 mmol/L (21-32); CHLORIDE 102 mmol/L (98-107); EST GLOM FILT AFRICAN AMERICAN > 60 ml/min; GLUCOSE 107 mg/dL (65-99); POTASSIUM 4.2 mmol/L (3.5-5.1); SODIUM 139 mmol/L (136-145)
[2017-03-26 12:00] VITALS: BP 135/74
[2017-03-26 16:00] VITALS: BP 129/84
[2017-03-26 20:00] VITALS: BP 124/81
[2017-03-27] VITALS (9 sets, daily range): BP systolic 106–168; BP diastolic 45–84
[2017-03-27 06:44] LABS: BASO # 0.1 10*3/uL (0.0-0.1); BASO % 0.9 % (0.0-1.0); EOS # 0.2 10*3/uL (0.0-0.4); EOS % 3.1 % (1.0-4.0); HEMATOCRIT 45.7 % (37.0-47.0); HEMOGLOBIN 15.2 g/dl (12.0-16.0); LYMPH # 3.6 10*3/uL (1.3-4.4); LYMPH % 45.8 % (27.0-41.0); MEAN CELL VOLUME 89.8 fl (81.0-99.0); MEAN CORPUSCULAR HGB 29.9 pg (27.0-31.0); MEAN CORPUSCULAR HGB CONC 33.3 g/dl (33.0-37.0); MEAN PLATELET VOLUME 10.6 fl (9.6-12.3); MONO # 0.6 10*3/uL (0.1-1.0); MONO % 7.7 % (3.0-9.0); NEUT # 3.3 10*3/uL (2.3-7.9); NEUT % 42.4 % (47.0-73.0); PLATELET COUNT AUTOMATED 279 10*3/uL (130-400); RED BLOOD COUNT 5.09 10*6/uL (4.10-5.10); RED CELL DISTRI WIDTH 13.5 % (0-14.5); WHITE BLOOD COUNT 7.8 10*3/uL (4.8-10.8)
[2017-03-27 07:00] LABS: ALBUMIN 3.6 gm/dl (3.1-4.5); BILIRUBIN, TOTAL 0.8 mg/dl (0.2-1.0); BUN 23 mg/dl (7-24); CARBON DIOXIDE 28 mmol/L (21-32); CHLORIDE 103 mmol/L (98-107); EST GLOM FILT AFRICAN AMERICAN > 60 ml/min; GLUCOSE 134 mg/dL (65-99); POTASSIUM 4.5 mmol/L (3.5-5.1); SGOT/AST 21 IU/L (3-35); SGPT/ALT 25 U/L (12-78); SODIUM 136 mmol/L (136-145)
[2017-03-27 07:01] LABS: ALKALINE PHOSPHATASE 79 U/L (45-117)
[2017-03-27] MEDS ORDERED: GAVISCON ES TA1 EACH PO (13:21)
[2017-03-27] MEDS ORDERED: PANTOPRAZOLE SO40 MG PO (13:21)
[2017-03-28] VITALS: BP 155/86
[2017-03-28 08:00] VITALS: BP 140/86
[2017-03-28 12:00] VITALS: BP 142/64
[2017-03-28] MEDS ORDERED: D-1000 185 MG-11 TAB PO (12:53)
== END 2017-03-28 15:22 | disposition home or self-care (01) | DRG 384 ==
LOC: ED 11:58 → EDHOLD 14:05 → 5E 14:05
PROVIDERS: Emergency Medicine; Family Medicine Adult Medicine; Internal Medicine Gastroenterology; Internal Medicine Nephrology; Registered Nurse
PROC: 3E033HZ Introduction of Radioactive Substance into Peripheral Vein, Percutaneous Approach (ICD-10-PCS; principal; 2017-03-25)
PROC: 4A02XM4 Measurement of Cardiac Total Activity, External Approach (ICD-10-PCS; principal; 2017-03-25)
PROC: 0DB68ZX Excision of Stomach, Via Natural or Artificial Opening Endoscopic, Diagnostic (ICD-10-PCS; 2017-03-27)
DX: K25.9 Gastric ulcer, unspecified as acute or chronic, without hemorrhage or perforation (principal); I11.0 Hypertensive heart disease with heart failure; I50.32 Chronic diastolic (congestive) heart failure; F33.9 Major depressive disorder, recurrent, unspecified; Z68.42 Body mass index [BMI] 45.0-49.9, adult; K29.70 Gastritis, unspecified, without bleeding; R07.9 Chest pain, unspecified; E66.01 Morbid (severe) obesity due to excess calories; E55.9 Vitamin D deficiency, unspecified; K44.9 Diaphragmatic hernia without obstruction or gangrene; R73.9 Hyperglycemia, unspecified; R73.03 Prediabetes; M79.7 Fibromyalgia; T39.315A Adverse effect of propionic acid derivatives, initial encounter; Z98.891 History of uterine scar from previous surgery; Z90.49 Acquired absence of other specified parts of digestive tract; Z88.6 Allergy status to analgesic agent; Z91.048 Other nonmedicinal substance allergy status; Z79.899 Other long term (current) drug therapy; Z82.3 Family history of stroke; Z80.9 Family history of malignant neoplasm, unspecified; Z98.51 Tubal ligation status; Y92.89 Other specified places as the place of occurrence of the external cause

== ENCOUNTER 2017-04-23 10:48 | Emergency (ER) | payer OTHER ==
[~2017-04-23] VITALS: Ht 162.5 cm; Wt 117.9 kg
--- NOTE | ~2017-04-23 | EKG ---
[place], [place] ELECTROCARDIOGRAM REPORT NAME: DONAVAN STANFORD UNIT #: [id number] ROOM: DOCTOR: CARL CARDOSO MD BIRTHDATE: [birth year] DOS: 04/23/2017 TIME: 1137 hours. Normal sinus rhythm at 68 beats per minute. Low voltage in precordial leads. No previous tracing is available for comparison. CARL CARDOSO MD CM:EKGRPT:ELECTROCARDIOGRAM REPORT 02 2303 CARL CARDOSO MD
[~2017-04-23 10:48] MED LIST changes: +D-1000 185 MG-11 TAB PO; +EFFEXOR XR75 M1 PO; +GAVISCON ES TA1 EACH PO; +HYDR25T PO; +PANTOPRAZOLE SO40 MG PO
[2017-04-23 10:56] VITALS: BP 147/62
[2017-04-23 11:43] LABS: BASO # 0.1 10*3/uL (0.0-0.1); EOS # 0.2 10*3/uL (0.0-0.4); EOS % 2.2 % (1.0-4.0); HEMATOCRIT 42.4 % (37.0-47.0); HEMOGLOBIN 14.1 g/dl (12.0-16.0); LYMPH # 2.9 10*3/uL (1.3-4.4); LYMPH % 37.7 % (27.0-41.0); MEAN CELL VOLUME 88.9 fl (81.0-99.0); MEAN CORPUSCULAR HGB 29.6 pg (27.0-31.0); MEAN CORPUSCULAR HGB CONC 33.3 g/dl (33.0-37.0); MEAN PLATELET VOLUME 10.3 fl (9.6-12.3); MONO # 0.5 10*3/uL (0.1-1.0); MONO % 6.9 % (3.0-9.0); NEUT % 51.8 % (47.0-73.0); PLATELET COUNT AUTOMATED 294 10*3/uL (130-400); RED BLOOD COUNT 4.77 10*6/uL (4.10-5.10); RED CELL DISTRI WIDTH 13.7 % (0-14.5); WHITE BLOOD COUNT 7.8 10*3/uL (4.8-10.8)
[2017-04-23 11:55] LABS: ACT PARTIAL THROMBO TIME 23.5 SECONDS (20.8-31.5); INTERNATIONAL NORM RATIO 0.9 (2.0-3.5)
[2017-04-23 11:59] LABS: ALBUMIN 3.3 gm/dl (3.1-4.5); ALKALINE PHOSPHATASE 89 U/L (45-117); BUN 14 mg/dl (7-24); CHLORIDE 106 mmol/L (98-107); CPK 102 U/L (26-192); CREATININE 0.84 mg/dL (0.55-1.02); LIPASE 108 U/L (73-393); MAGNESIUM 2.1 mg/dL (1.5-2.1); POTASSIUM 3.5 mmol/L (3.5-5.1); SGOT/AST 21 IU/L (3-35); SGPT/ALT 25 U/L (12-78); SODIUM 139 mmol/L (136-145); TOTAL PROTEIN 7.6 gm/dL (6.4-8.2)
[2017-04-23 12:00] LABS: CKMB < 0.5 ng/ml (0.5-3.6); TROPONIN I < 0.015 ng/ml (<0.045)
[2017-04-23 12:57] LABS: BILIRUBIN NEGATIVE (NEGATIVE); BLOOD NEGATIVE (NEGATIVE); CLARITY SL CLOUDY (CLEAR); COLOR YELLOW (YELLOW); GLUCOSE NEGATIVE (NEGATIVE); KETONE NEGATIVE (NEGATIVE); LEUKO ESTERASE NEGATIVE (NEGATIVE); NITRITE NEGATIVE (NEGATIVE); PH 6.5 (5.0-9.0); SPECIFIC GRAVITY 1.015 (1.005-1.030); UROBILINOGEN 0.2 E.U./dl (0.2-1.0)
[2017-04-23 13:02] LABS: RBC 0-2 rbc/hpf (0-2)
[2017-04-23 13:03] LABS: BACTERIA TRACE
[2017-04-23] MEDS ORDERED: ZOFRAN ODT4 MG SL (13:46)
[2017-04-23] MEDS ORDERED: MECLIZINE HCL25 M2 PO (13:46)
== END 2017-04-23 14:41 | disposition home or self-care (01) ==
LOC: ED 10:48
PROVIDERS: Emergency Medicine
DX: R42 Dizziness and giddiness (principal); H53.8 Other visual disturbances; R51 Headache; R11.0 Nausea; R68.83 Chills (without fever); R05 Cough; I11.0 Hypertensive heart disease with heart failure; I50.32 Chronic diastolic (congestive) heart failure; Z88.6 Allergy status to analgesic agent; Z79.899 Other long term (current) drug therapy

== ENCOUNTER → 2017-06-27 | Outpatient (CLI) | payer OTHER ==
[~2017-06-27] MED LIST changes: +MECLIZINE HCL25 M2 PO
[2017-06-27 16:00] LABS: BILIRUBIN NEGATIVE (NEGATIVE); BLOOD NEGATIVE (NEGATIVE); CLARITY SL CLOUDY (CLEAR); COLOR YELLOW (YELLOW); GLUCOSE NEGATIVE (NEGATIVE); KETONE NEGATIVE (NEGATIVE); LEUKO ESTERASE NEGATIVE (NEGATIVE); NITRITE NEGATIVE (NEGATIVE); PH 5.5 (5.0-9.0); SPECIFIC GRAVITY 1.025 (1.005-1.030); UROBILINOGEN 0.2 E.U./dl (0.2-1.0)
[2017-06-27 16:06] LABS: BACTERIA 2+; MUCOUS 1+; RBC 0-2 rbc/hpf (0-2); WBC 0-2 wbc/hpf (0-5)
[2017-06-27 16:09] LABS: BASO # 0.1 10*3/uL (0.0-0.1); BASO % 0.6 % (0.0-1.0); EOS # 0.3 10*3/uL (0.0-0.4); EOS % 4.2 % (1.0-4.0); HEMATOCRIT 42.6 % (37.0-47.0); HEMOGLOBIN 14.3 g/dl (12.0-16.0); LYMPH # 3.3 10*3/uL (1.3-4.4); LYMPH % 41.4 % (27.0-41.0); MEAN CELL VOLUME 90.4 fl (81.0-99.0); MEAN CORPUSCULAR HGB 30.4 pg (27.0-31.0); MEAN CORPUSCULAR HGB CONC 33.6 g/dl (33.0-37.0); MEAN PLATELET VOLUME 10.7 fl (9.6-12.3); MONO # 0.6 10*3/uL (0.1-1.0); MONO % 7.5 % (3.0-9.0); NEUT # 3.7 10*3/uL (2.3-7.9); NEUT % 46.1 % (47.0-73.0); PLATELET COUNT AUTOMATED 289 10*3/uL (130-400); RED BLOOD COUNT 4.71 10*6/uL (4.10-5.10); RED CELL DISTRI WIDTH 13.4 % (0-14.5); WHITE BLOOD COUNT 8.1 10*3/uL (4.8-10.8)
[2017-06-27 16:33] LABS: ALBUMIN 3.7 gm/dl (3.1-4.5); ALKALINE PHOSPHATASE 77 U/L (45-117); BUN 10 mg/dl (7-24); CHLORIDE 107 mmol/L (98-107); CREATININE 0.79 mg/dL (0.55-1.02); POTASSIUM 3.5 mmol/L (3.5-5.1); SGOT/AST 26 IU/L (3-35); SGPT/ALT 36 U/L (12-78); SODIUM 141 mmol/L (136-145); TOTAL PROTEIN 7.9 gm/dL (6.4-8.2)
== END | disposition home or self-care (01) ==
LOC: LAB 15:15
PROVIDERS: Orthopaedic Surgery
DX: M16.12 Unilateral primary osteoarthritis, left hip (principal); R82.99 Other abnormal findings in urine

== ENCOUNTER 2017-08-10 23:38 | Inpatient (IN) | payer OTHER ==
[~2017-08-10] VITALS: Ht 162.5 cm; Wt 120.0 kg
--- NOTE | ~2017-08-10 | CON ---
[place], [place] REPORT OF CONSULTATION NAME: DONAVAN STANFORD UNIT #: [id number] ROOM: 408 DOCTOR: PHIL MORE MD BIRTHDATE: [birth year] DOS: 08/12/2017 REASON FOR CONSULTATION: Chest pain. HISTORY OF PRESENT ILLNESS: The patient is a 51-year-old woman with risk factors of essential hypertension, prediabetes and obesity. I first evaluated her when she was hospitalized in February 2017. She presented at that time with atypical chest pain. She ruled out for myocardial infarction. An echocardiogram showed normal left ventricular size with mild concentric left ventricular hypertrophy. There was normal left ventricular wall motion and systolic function with stage 1 diastolic relaxation abnormalities. No abnormality of valve function was seen. A pharmacologic myocardial perfusion study was done on 03/25/2017 and showed an ejection fraction of 68% with no evidence for ischemia. The study was felt to be low risk and her pains were felt to be of GI origin. The patient had considerable degenerative joint disease and did undergo a left hip replacement, 07/10/2017. She states that she recovered well, but has not continued physical therapy and has been managing around the house on her own, although she does admit that she is fairly sedentary. Two days ago, she did have chest discomfort. The pain woke her from sleep and was pleuritic in character. It started in her left center chest and radiated under her left breast and into her axilla and back. The pain was quite severe at first. The patient was brought to the Emergency Room where her chest x-ray and troponin levels were normal. Her electrocardiogram showed no acute changes; however, her D-dimer level was elevated at 5.07, with normal being less than 0.49. A CT angiogram of the chest was attempted, but could not be accomplished because of poor venous access. She therefore did undergo a lung scan on 08/11/2017, which showed multiple ventilation/perfusion mismatches and was consistent with a high probability for pulmonary embolism. The patient was placed on intravenous heparin and states that she feels dramatically better today. She does have minimal pain with a very deep breath, but her pain has remarkably improved from admission. PAST MEDICAL HISTORY: Includes 1. Essential hypertension. 2. Peripheral edema, likely due to diastolic heart failure, improved with hydrochlorothiazide. 3. History of right hydronephrosis and kidney surgery as an , resolved. 4. Status post cholecystectomy. 5. History of left knee surgery on two occasions. 6. History of tonsillectomy. 7. Prediabetes. 8. History of depression. 9. No previously documented history of myocardial infarction or stroke. 10. Gastroesophageal reflux disease. 11. Echocardiogram, 03/25/2017, mild concentric left ventricular hypertrophy with mild left atrial enlargement, stage 1 diastolic relaxation abnormalities, normal systolic function. No valve abnormalities. 12. Pharmacologic myocardial perfusion study, 03/25/2017, ejection fraction [place], [place] REPORT OF CONSULTATION NAME: DONAVAN STANFORD UNIT #: [id number] ROOM: 408 DOCTOR: PHIL MORE MD BIRTHDATE: [birth year] 68%, no reversible ischemia, low risk study. MEDICATIONS: Prior to admission: Gabapentin 300 mg t.i.d., hydrochlorothiazide 25 mg daily and tramadol 50 mg at bedtime p.r.n. ALLERGIES: The patient lists allergies to MORPHINE and TAPE. REVIEW OF SYSTEMS: The patient denies diplopia or loss of vision. She denies lightheadedness or syncope. She denies focal weakness. She denies nausea or vomiting. She denies fevers, chills, sweats or recent weight change. She denies any focal weakness. She denies hemoptysis or cough. She denies any significant dyspnea, but she did have pleuritic chest pain as noted above. She denies any palpitations. She denies any hematemesis. She denies any bleeding from her stools or urine. She does have swelling and pain in her left hip and left thigh, which has gotten worse lately. She also notes some swelling and pain in her left calf. She denies any foot edema. She denies any skin rashes. She denies polydipsia or polyuria. Remainder of the review of systems is negative except as noted above. FAMILY HISTORY: Negative for early coronary artery disease. SOCIAL HISTORY: The patient does not drink alcohol or smoke cigarettes. She does use occasional marijuana, but no other illicit drugs. PHYSICAL EXAMINATION: GENERAL: The patient is an overweight white female who is awake, alert and oriented. VITAL SIGNS: Pulse is 63 and regular, blood pressure is 140/79. She is afebrile. She weighs 120 kg and has a body mass index of 45.4. HEENT: Normocephalic and atraumatic. Extraocular muscles are intact. Sclerae are clear. Pupils equal, round and react to light. The oral mucosa is moist. Tongue is midline. NECK: Supple. She has no jugular distention. Carotids are full. I heard no bruits. She had no neck or supraclavicular masses and no thyromegaly. LUNGS: Respirations are unlabored. Her chest is clear to auscultation and percussion. She has no presacral edema or chest wall tenderness. HEART: Has a regular rhythm. She has a fourth heart sound, but no third heart sound or murmur. The PMI is not displaced. There is no precordial heave, lift or thrill. ABDOMEN: Soft and normally active without masses, organomegaly or bruits. EXTREMITIES: Her left thigh is tender, although I see no cords or erythematous areas. She is slightly swollen in her left thigh. She does have tenderness behind her left knee as well as in her left calf. Again, there are no cords and I see no Homans sign. Pedal pulses are full and equal bilaterally. There are no obvious skin rashes. LABORATORY DATA: I reviewed her electrocardiograms. They all show sinus rhythm and are normal tracings. Serial cardiac troponin levels have been normal. IMPRESSION: [place], [place] REPORT OF CONSULTATION NAME: DONAVAN STANFORD UNIT #: [id number] ROOM: [facility] DOCTOR: PHIL MORE MD BIRTHDATE: [birth year] 1. Sudden onset of pleuritic chest pain 1 month after hip surgery. The patient does have tenderness and swelling in her left thigh and calf and a positive lung scan. The overwhelming evidence is that she does have deep venous thrombosis and pulmonary embolism. 2. Essential hypertension. 3. Prediabetes. 4. Obesity. 5. Degenerative joint disease, status post recent hip replacement. PLAN: The patient will be switched from IV heparin to oral rivaroxaban. She should take 15 mg twice a day for 21 days with food and then 20 mg daily for a total of 6 months. After that assuming she is fully active, the rivaroxaban can be stopped. In order to evaluate her further, we will be getting a lower extremity venous ultrasound as well as a limited echocardiogram to determine if she shows any signs of right heart strain. We will follow with her primary physicians for her initial hospitalization. I thank the hospitalist physicians for asking our advice regarding her care. PHIL MORE MD CM:CONSTR:REPORT OF CONSULTATION 0911 08/12/17 1104 interface
[2017-08-10 23:46] VITALS: BP 134/74
[2017-08-11] VITALS (7 sets, daily range): BP systolic 117–150; BP diastolic 61–77
[2017-08-11 00:21] LABS: BASO # 0.1 10*3/uL (0.0-0.1); BASO % 0.7 % (0.0-1.0); EOS # 0.5 10*3/uL (0.0-0.4); EOS % 5.9 % (1.0-4.0); HEMATOCRIT 39.8 % (37.0-47.0); HEMOGLOBIN 13.3 g/dl (12.0-16.0); LYMPH # 3.3 10*3/uL (1.3-4.4); LYMPH % 36.1 % (27.0-41.0); MEAN CELL VOLUME 88.1 fl (81.0-99.0); MEAN CORPUSCULAR HGB 29.4 pg (27.0-31.0); MEAN CORPUSCULAR HGB CONC 33.4 g/dl (33.0-37.0); MEAN PLATELET VOLUME 10.3 fl (9.6-12.3); MONO # 0.7 10*3/uL (0.1-1.0); MONO % 7.8 % (3.0-9.0); NEUT # 4.5 10*3/uL (2.3-7.9); NEUT % 49.3 % (47.0-73.0); PLATELET COUNT AUTOMATED 234 10*3/uL (130-400); RED BLOOD COUNT 4.52 10*6/uL (4.10-5.10); RED CELL DISTRI WIDTH 13.6 % (0-14.5)
[2017-08-11 00:39] LABS: ALBUMIN 3.4 gm/dl (3.1-4.5); ALKALINE PHOSPHATASE 91 U/L (45-117); BUN 10 mg/dl (7-24); CHLORIDE 104 mmol/L (98-107); CREATININE 0.85 mg/dL (0.55-1.02); POTASSIUM 3.9 mmol/L (3.5-5.1); SGOT/AST 23 IU/L (3-35); SGPT/ALT 26 U/L (12-78); SODIUM 140 mmol/L (136-145); TOTAL PROTEIN 7.3 gm/dL (6.4-8.2); TROPONIN I < 0.015 ng/ml (<0.045)
[2017-08-11 00:55] LABS: ACT PARTIAL THROMBO TIME 23.2 SECONDS (20.8-31.5)
--- NOTE | 2017-08-11 02:30 | NUR ---
A 51, admitted to 4E, under the services of MARYSE Montiel DO with a diagnosis of CHEST PAIN. Chief complaint is CHEST PAIN. Patient arrived via bed from ER. Monitor applied. Initial assessment completed. Vital signs taken and recorded. MARYSE MONTIEL DO notified of admission to the unit. Orders received. See assessment for past medical history, medications and allergies. Patient and/or family oriented to unit. visitation policy reviewed. Clothing/patient valuable form completed. GONZALO AZEVEDO
--- NOTE | 2017-08-11 02:32 | NUR ---
MED REC UP TO DATE PER PATIENT
[2017-08-11] MEDS ORDERED: TRAMADOL HCL50 MG PO (02:35)
--- NOTE | 2017-08-11 04:32 | NUR ---
SLEEPING. RESP EASY AND NONLABORED ON ROOM AIR. NO DISTRESS NOTED. CM INTACT. CALL LIGHT IN REACH. WILL CONTINUE TO MONITOR.
[2017-08-11 06:19] LABS: BASO # 0.1 10*3/uL (0.0-0.1); BASO % 0.6 % (0.0-1.0); EOS # 0.5 10*3/uL (0.0-0.4); EOS % 5.4 % (1.0-4.0); HEMATOCRIT 36.5 % (37.0-47.0); HEMOGLOBIN 12.2 g/dl (12.0-16.0); LYMPH # 3.2 10*3/uL (1.3-4.4); LYMPH % 37.8 % (27.0-41.0); MEAN CELL VOLUME 88.4 fl (81.0-99.0); MEAN CORPUSCULAR HGB 29.5 pg (27.0-31.0); MEAN CORPUSCULAR HGB CONC 33.4 g/dl (33.0-37.0); MEAN PLATELET VOLUME 10.3 fl (9.6-12.3); MONO # 0.8 10*3/uL (0.1-1.0); MONO % 8.9 % (3.0-9.0); NEUT % 47.2 % (47.0-73.0); PLATELET COUNT AUTOMATED 217 10*3/uL (130-400); RED BLOOD COUNT 4.13 10*6/uL (4.10-5.10); RED CELL DISTRI WIDTH 13.5 % (0-14.5); WHITE BLOOD COUNT 8.5 10*3/uL (4.8-10.8)
[2017-08-11 06:52] LABS: ALBUMIN 3.1 gm/dl (3.1-4.5); ALKALINE PHOSPHATASE 85 U/L (45-117); BUN 10 mg/dl (7-24); CHLORIDE 104 mmol/L (98-107); CHOLESTEROL 182 mg/dL (<200); CREATININE 0.78 mg/dL (0.55-1.02); FREE T4 1.05 ng/dl (0.76-1.46); HDL CHOLESTEROL 39 mg/dl (40-60); LDL CHOLESTEROL 115 mg/dL (9-159); PHOSPHOROUS 3.7 mg/dL (2.5-4.9); POTASSIUM 3.7 mmol/L (3.5-5.1); SGOT/AST 22 IU/L (3-35); SGPT/ALT 24 U/L (12-78); SODIUM 141 mmol/L (136-145); TOTAL PROTEIN 6.9 gm/dL (6.4-8.2); TRIGLYCERIDES 138 mg/dl (<150); VLDL CHOLESTEROL 28 mg/dL (6-40)
[2017-08-11 06:55] LABS: ACT PARTIAL THROMBO TIME 23.5 SECONDS (20.8-31.5)
--- NOTE | 2017-08-11 08:50 | NUR ---
TORADOL 15MG IV GIVEN PER PATIENT REQUEST FOR MID EPIGASTRIC PAIN.
--- NOTE | 2017-08-11 10:00 | NUR ---
PATIENT STATES THAT TORADOL WAS EFFECTIVE.
--- NOTE | 2017-08-11 15:02 | NUR ---
DR PEREZ NOTIFIED OF CONSULT. NEW ORDERS RECEIVED.
--- NOTE | 2017-08-11 15:27 | NUR ---
PATIENT COMPLAINING OF SEVERE EPIGASTRIC PAIN. TORADOL 15MG GIVEN. DR Reji RENTERIA IN TO SEE PATIENT. EKG ORDERED AND GI COCKTAIL ORDERED.
--- NOTE | 2017-08-11 15:55 | NUR ---
GI COCKTAIL GIVEN ORDERED.
--- NOTE | 2017-08-11 17:15 | NUR ---
PATIENT STATES THAT THE GI COCKTAIL HAS DECREASED HER PAIN BUT SHE IS STILL FEELING SOME EPIGASTRIC PAIN.
--- NOTE | 2017-08-11 17:44 | NUR ---
[facility] EM[facility]PART[facility] RADIOLOGY CALLED TO RELAY THE RESULTS OF THE VQ SCAN. VQ SCAN SHOWS A HIGH PROBABILITY OF PE. DR FREDDY RENTERIA NOTIFIED.
--- NOTE | 2017-08-11 17:58 | NUR ---
DR PEREZ NOTIFIED OF VQ SCAN RESULTS. NO NEW ORDERS GIVEN.
--- NOTE | 2017-08-11 20:00 | NUR ---
ASSUMED CARE OF PATIENT. ASSESSMENT COMPLETE. RESTING IN BED. NO COMPLAINTS AT THIS TIME. CALL LIGHT IN REACH. WILL CONTINUE TO MONITOR.
--- NOTE | 2017-08-11 22:15 | NUR ---
MEDICATED WITH PRN TORADOL FOR C/O CHEST PAIN. RATES 03/04. WILL MONITOR FOR EFFECTIVENESS
--- NOTE | 2017-08-11 23:39 | NUR ---
PER PATIENT, EARLIER TORADOL EFFECTIVE
[2017-08-12] VITALS: BP 106/61
--- NOTE | 2017-08-12 01:17 | NUR ---
LAB CALLED CRITICAL: APTT 163.0 PER HEPARIN POLICY, GTT HELD FOR 1 HR STARTING NOW GTT WILL BE DECREASED BY 3 UNITS/KG/HR PER POLICY UPON RESTART
--- NOTE | 2017-08-12 02:00 | NUR ---
SLEEPING. RESP EASY AND NONLABORED ON ROOM AIR. NO DISTRESS NOTED. CM INTACT. CALL LIGHT IN REACH. WILL CONTINUE TO MONITOR.
--- NOTE | 2017-08-12 02:15 | NUR ---
HEPARING GTT RESUMED AT THIS TIME AT 18.6 UNITS/KG/HR
--- NOTE | 2017-08-12 06:38 | NUR ---
MEDICATED WITH PRN TORADOL FOR C/O CHEST PAIN. RATES 03/04.
[2017-08-12 07:42] LABS: BASO # 0.1 10*3/uL (0.0-0.1); BASO % 0.9 % (0.0-1.0); EOS # 0.6 10*3/uL (0.0-0.4); EOS % 8.9 % (1.0-4.0); HEMATOCRIT 36.5 % (37.0-47.0); HEMOGLOBIN 12.2 g/dl (12.0-16.0); LYMPH # 3.2 10*3/uL (1.3-4.4); LYMPH % 46.2 % (27.0-41.0); MEAN CELL VOLUME 87.5 fl (81.0-99.0); MEAN CORPUSCULAR HGB 29.3 pg (27.0-31.0); MEAN CORPUSCULAR HGB CONC 33.4 g/dl (33.0-37.0); MEAN PLATELET VOLUME 10.5 fl (9.6-12.3); MONO # 0.6 10*3/uL (0.1-1.0); MONO % 8.4 % (3.0-9.0); NEUT # 2.4 10*3/uL (2.3-7.9); NEUT % 35.3 % (47.0-73.0); PLATELET COUNT AUTOMATED 210 10*3/uL (130-400); RED BLOOD COUNT 4.17 10*6/uL (4.10-5.10); RED CELL DISTRI WIDTH 13.6 % (0-14.5); WHITE BLOOD COUNT 6.9 10*3/uL (4.8-10.8)
[2017-08-12 08:00] VITALS: BP 140/79
[2017-08-12 08:21] LABS: ALBUMIN 3.2 gm/dl (3.1-4.5); ALKALINE PHOSPHATASE 87 U/L (45-117); BUN 12 mg/dl (7-24); CHLORIDE 104 mmol/L (98-107); CREATININE 0.74 mg/dL (0.55-1.02); LIPASE 77 U/L (73-393); POTASSIUM 3.8 mmol/L (3.5-5.1); SGOT/AST 38 IU/L (3-35); SGPT/ALT 32 U/L (12-78); SODIUM 141 mmol/L (136-145); TOTAL PROTEIN 7.1 gm/dL (6.4-8.2)
--- NOTE | 2017-08-12 08:22 | NUR ---
HEPARIN HELD AT THIS TIME FOR ONE HOUR FOR APTT OF 119.1. LAB REORDERED FOR 6 HOURS FROM LAST DRAW PER PROTOCOL.
--- NOTE | 2017-08-12 09:00 | NUR ---
Trucking Contractor in to talk to patient. Patient states lives at home with son. There are few steps in the home. Physician: alice samayoa Pharmacy: [facility] Home health services: none Patient's level of ADLs: INDEPENDENT Patient has working utilities: all working DME: cane Follow-up physician's appointment after d/c: will be made by hospitalist nurse director upon discharge Does patient want to access PORTAL?: no Discharge plan discussed with patient, patient lives at home with son, states she uses a cane occasionally for ambulation, patient states she will be going back home when able, discussed with her VNA and she refused any services at this time. JACKIE ALBRECHT
--- NOTE | 2017-08-12 09:38 | NUR ---
PT ALLOWED TO TAKE OF HEALTH AND WELLNESS INSTRUCTOR FOR SHOWER PER DR. ROWLEY.
--- NOTE | 2017-08-12 10:20 | NUR ---
CALLED FROM DR. LOZADA, [facility], AND WAS INFORMED OF DVTS IN LEFT LOWER EXTREMITY. DR. ROWLEY INFORMED.
[2017-08-12 12:00] VITALS: BP 132/78
--- NOTE | 2017-08-12 12:14 | NUR ---
IV FLUSHED WITH NSS.
[2017-08-12 16:00] VITALS: BP 117/67
[2017-08-12 20:00] VITALS: BP 127/90
--- NOTE | 2017-08-12 20:45 | NUR ---
HEP LOCK INFILTRATED; PT. REFUSING FOR IV TO BE RESTARTED. CALLED DR. NUÑEZ. NEW ORDER PUT IN FOR IM TORADOL.
--- NOTE | 2017-08-12 22:15 | NUR ---
MEDICATED WITH TORADOL FOR C/O PAIN RATED A 6/10.
[2017-08-13] VITALS: BP 106/74
--- NOTE | 2017-08-13 00:45 | NUR ---
MEDICATED WITH RESTORIL PER PT'S REQUEST FOR INSOMNIA.
--- NOTE | 2017-08-13 02:30 | NUR ---
RESTING IN BED WITH EYES CLOSED. RESTORIL/TORADOL GIVEN EARLIER APPARENTLY EFFECTIVE.
[2017-08-13 06:55] LABS: BASO # 0.1 10*3/uL (0.0-0.1); EOS # 0.8 10*3/uL (0.0-0.4); EOS % 11.3 % (1.0-4.0); HEMATOCRIT 39.4 % (37.0-47.0); HEMOGLOBIN 12.7 g/dl (12.0-16.0); LYMPH # 3.2 10*3/uL (1.3-4.4); LYMPH % 46.1 % (27.0-41.0); MEAN CELL VOLUME 89.1 fl (81.0-99.0); MEAN CORPUSCULAR HGB 28.7 pg (27.0-31.0); MEAN CORPUSCULAR HGB CONC 32.2 g/dl (33.0-37.0); MEAN PLATELET VOLUME 10.5 fl (9.6-12.3); MONO # 0.7 10*3/uL (0.1-1.0); MONO % 10.8 % (3.0-9.0); NEUT # 2.1 10*3/uL (2.3-7.9); NEUT % 30.5 % (47.0-73.0); PLATELET COUNT AUTOMATED 222 10*3/uL (130-400); RED BLOOD COUNT 4.42 10*6/uL (4.10-5.10); RED CELL DISTRI WIDTH 13.5 % (0-14.5); WHITE BLOOD COUNT 6.8 10*3/uL (4.8-10.8)
[2017-08-13 07:31] LABS: ALBUMIN 3.5 gm/dl (3.1-4.5); BUN 11 mg/dl (7-24); CHLORIDE 106 mmol/L (98-107); POTASSIUM 4.1 mmol/L (3.5-5.1); SODIUM 141 mmol/L (136-145)
[2017-08-13 07:42] LABS: ALKALINE PHOSPHATASE 91 U/L (45-117); CREATININE 0.78 mg/dL (0.55-1.02); SGOT/AST 31 IU/L (3-35); SGPT/ALT 35 U/L (12-78); TOTAL PROTEIN 7.5 gm/dL (6.4-8.2)
[2017-08-13 08:00] VITALS: BP 99/72
--- NOTE | 2017-08-13 09:00 | NUR ---
case management visits with patient, patient states she will be going home when able, denies any home needs
--- NOTE | 2017-08-13 11:16 | NUR ---
case management received a message to check on cost of xeralto for patient, called [facility], spoke to pharmacist, medication needs a prior authorization, medication form printed off and faxed to [facility], will await a decision for prior auth
[2017-08-13 12:00] VITALS: BP 153/98
[2017-08-13 16:00] VITALS: BP 144/81
[2017-08-13 20:00] VITALS: BP 137/97
[2017-08-14] VITALS: BP 117/72
--- NOTE | 2017-08-14 00:37 | NUR ---
24 HR chart check completed.
[2017-08-14 08:00] VITALS: BP 132/94
[2017-08-14 09:04] LABS: BUN 11 mg/dl (7-24); CHLORIDE 106 mmol/L (98-107); POTASSIUM 4.3 mmol/L (3.5-5.1); SODIUM 139 mmol/L (136-145)
[2017-08-14] MEDS ORDERED: XARE15TA PO (10:04)
--- NOTE | 2017-08-14 11:04 | NUR ---
Discharge instructions reviewed with patient/family. Patient receptive and verbalizes understanding. Follow-up care arranged. Written instructions given to patient/family. ANGELITA TUTTLE
--- NOTE | 2017-08-14 11:10 | NUR ---
PER FAX FROM RAMIRO ESCAMILLA APPROVED. FAX GIVEN TO PT AND STATES [facility] ALREADY KNOWS IT WAS APPROVED.
[2017-08-14] MEDS ORDERED: VITAMIN D32000 UNIT PO (12:22)
== END 2017-08-14 11:04 | disposition home or self-care (01) | DRG 299 ==
LOC: ED 23:38 → EDHOLD 08-11 01:41 → 4E 08-11 01:41
PROVIDERS: Emergency Medicine; Emergency Medicine Emergency Medical Services; Hospitalist; Student in an Organized Health Care Education/Training Program; ADMIT Internal Medicine
DX: I82.402 Acute embolism and thrombosis of unspecified deep veins of left lower extremity (principal); I26.99 Other pulmonary embolism without acute cor pulmonale; I50.32 Chronic diastolic (congestive) heart failure; Z68.41 Body mass index [BMI] 40.0-44.9, adult; I11.0 Hypertensive heart disease with heart failure; E55.9 Vitamin D deficiency, unspecified; K44.9 Diaphragmatic hernia without obstruction or gangrene; F32.9 Major depressive disorder, single episode, unspecified; K21.9 Gastro-esophageal reflux disease without esophagitis; Z96.643 Presence of artificial hip joint, bilateral; Z96.652 Presence of left artificial knee joint; R73.03 Prediabetes; F12.90 Cannabis use, unspecified, uncomplicated; M79.7 Fibromyalgia; E66.9 Obesity, unspecified; Z90.49 Acquired absence of other specified parts of digestive tract; Z98.891 History of uterine scar from previous surgery; Z82.49 Family history of ischemic heart disease and other diseases of the circulatory system; Z80.8 Family history of malignant neoplasm of other organs or systems; Z88.5 Allergy status to narcotic agent; I25.2 Old myocardial infarction; Z82.3 Family history of stroke

== ENCOUNTER 2017-09-19 15:18 | Emergency (ER) | payer OTHER ==
[~2017-09-19] VITALS: Ht 162.5 cm; Wt 113.4 kg
[~2017-09-19 15:18] MED LIST changes: +TRAMADOL HCL50 MG PO; +VITAMIN D32000 UNIT PO; +XARE15TA PO
[2017-09-19 16:07] LABS: BASO # 0.1 10*3/uL (0.0-0.1); BASO % 1.2 % (0.0-1.0); EOS # 0.3 10*3/uL (0.0-0.4); EOS % 4.5 % (1.0-4.0); HEMATOCRIT 41.6 % (37.0-47.0); HEMOGLOBIN 13.6 g/dl (12.0-16.0); LYMPH # 3.1 10*3/uL (1.3-4.4); LYMPH % 45.5 % (27.0-41.0); MEAN CELL VOLUME 87.2 fl (81.0-99.0); MEAN CORPUSCULAR HGB 28.5 pg (27.0-31.0); MEAN CORPUSCULAR HGB CONC 32.7 g/dl (33.0-37.0); MEAN PLATELET VOLUME 10.6 fl (9.6-12.3); MONO # 0.5 10*3/uL (0.1-1.0); MONO % 6.8 % (3.0-9.0); NEUT # 2.9 10*3/uL (2.3-7.9); NEUT % 41.9 % (47.0-73.0); PLATELET COUNT AUTOMATED 292 10*3/uL (130-400); RED BLOOD COUNT 4.77 10*6/uL (4.10-5.10); RED CELL DISTRI WIDTH 13.6 % (0-14.5); WHITE BLOOD COUNT 6.9 10*3/uL (4.8-10.8)
[2017-09-19 16:25] LABS: ALBUMIN 3.6 gm/dl (3.1-4.5); ALKALINE PHOSPHATASE 83 U/L (45-117); BUN 8 mg/dl (7-24); CHLORIDE 106 mmol/L (98-107); CREATININE 0.89 mg/dL (0.55-1.02); POTASSIUM 3.7 mmol/L (3.5-5.1); SGOT/AST 54 IU/L (3-35); SGPT/ALT 58 U/L (12-78); SODIUM 141 mmol/L (136-145); TOTAL PROTEIN 7.4 gm/dL (6.4-8.2)
[2017-09-19 16:26] LABS: INTERNATIONAL NORM RATIO 0.9 (2.0-3.5)
[2017-09-19] MEDS ORDERED: XARE15TA PO (16:59)
[2017-09-19 17:29] VITALS: BP 122/62
== END 2017-09-19 17:44 | disposition home or self-care (01) ==
LOC: ED 15:18
PROVIDERS: Nurse Practitioner Family
DX: Z76.0 Encounter for issue of repeat prescription (principal); R51 Headache; I82.4Z2 Acute embolism and thrombosis of unspecified deep veins of left distal lower extremity; F12.10 Cannabis abuse, uncomplicated; Z98.890 Other specified postprocedural states; Z90.49 Acquired absence of other specified parts of digestive tract; Z96.652 Presence of left artificial knee joint; Z88.5 Allergy status to narcotic agent

== ENCOUNTER → 2017-10-16 | Outpatient (CLI) | payer OTHER | END | disposition home or self-care (01) | LOC: RESCLI 02:56 | DX: I11.0 Hypertensive heart disease with heart failure (principal); I50.32 Chronic diastolic (congestive) heart failure; I82.432 Acute embolism and thrombosis of left popliteal vein; I26.99 Other pulmonary embolism without acute cor pulmonale; R19.7 Diarrhea, unspecified; R10.84 Generalized abdominal pain; R60.0 Localized edema; F41.9 Anxiety disorder, unspecified; M79.7 Fibromyalgia; E66.01 Morbid (severe) obesity due to excess calories; E55.9 Vitamin D deficiency, unspecified; Z90.49 Acquired absence of other specified parts of digestive tract ==

== ENCOUNTER → 2018-01-07 | Outpatient (CLI) | payer OTHER | END | disposition home or self-care (01) | LOC: RESCLI 02:01 | DX: Z12.31 Encounter for screening mammogram for malignant neoplasm of breast (principal); I82.432 Acute embolism and thrombosis of left popliteal vein; I26.99 Other pulmonary embolism without acute cor pulmonale; R19.7 Diarrhea, unspecified; R10.84 Generalized abdominal pain; I10 Essential (primary) hypertension; F41.9 Anxiety disorder, unspecified; M79.7 Fibromyalgia; E66.01 Morbid (severe) obesity due to excess calories; E55.9 Vitamin D deficiency, unspecified ==

== ENCOUNTER → 2018-02-11 | Outpatient (CLI) | payer OTHER ==
[~2018-02-11] MED LIST changes: +DICYCLOMINE HCL10 MG PO; +GABAPENTIN400 MG PO; +LEXAPRO10 MG PO; +Synthroid,Levo25 MCG PO; +XARE20MG PO
[2018-02-11 13:18] LABS: BASO # 0.1 10*3/uL (0.0-0.1); BASO % 1.2 % (0.0-1.0); EOS # 0.3 10*3/uL (0.0-0.4); EOS % 5.6 % (1.0-4.0); HEMATOCRIT 44.2 % (37.0-47.0); HEMOGLOBIN 14.4 g/dl (12.0-16.0); LYMPH # 2.6 10*3/uL (1.3-4.4); LYMPH % 45.3 % (27.0-41.0); MEAN CELL VOLUME 90.8 fl (81.0-99.0); MEAN CORPUSCULAR HGB 29.6 pg (27.0-31.0); MEAN CORPUSCULAR HGB CONC 32.6 g/dl (33.0-37.0); MEAN PLATELET VOLUME 11.5 fl (9.6-12.3); MONO # 0.5 10*3/uL (0.1-1.0); MONO % 9.1 % (3.0-9.0); NEUT # 2.2 10*3/uL (2.3-7.9); NEUT % 38.6 % (47.0-73.0); PLATELET COUNT AUTOMATED 236 10*3/uL (130-400); RED BLOOD COUNT 4.87 10*6/uL (4.10-5.10); RED CELL DISTRI WIDTH 14.3 % (0-14.5); WHITE BLOOD COUNT 5.7 10*3/uL (4.8-10.8)
[2018-02-11 13:50] LABS: ALBUMIN 3.7 gm/dl (3.1-4.5); BUN 10 mg/dl (7-24); CHLORIDE 107 mmol/L (98-107); CHOLESTEROL 173 mg/dL (<200); CREATININE 0.78 mg/dL (0.55-1.02); PHOSPHOROUS 3.2 mg/dL (2.5-4.9); POTASSIUM 3.8 mmol/L (3.5-5.1); SGOT/AST 36 IU/L (3-35); SGPT/ALT 43 U/L (12-78); SODIUM 142 mmol/L (136-145); TOTAL PROTEIN 7.3 gm/dL (6.4-8.2); TRIGLYCERIDES 161 mg/dl (<150); VLDL CHOLESTEROL 32 mg/dL (6-40)
[2018-02-11 13:51] LABS: ALKALINE PHOSPHATASE 67 U/L (45-117); HDL CHOLESTEROL 37 mg/dl (40-60); LDL CHOLESTEROL 104 mg/dL (9-159)
== END | disposition home or self-care (01) ==
LOC: LAB 12:34
PROVIDERS: Internal Medicine
DX: I10 Essential (primary) hypertension (principal); E66.01 Morbid (severe) obesity due to excess calories

== ENCOUNTER 2018-02-18 16:42 | Inpatient (IN) | payer OTHER ==
[~2018-02-18] VITALS: Ht 162.5 cm; Wt 113.1 kg
--- NOTE | ~2018-02-18 | CON ---
[place], [place] REPORT OF CONSULTATION NAME: DONAVAN STANFORD UNIT #: [id number] ROOM: 415 DOCTOR: PHIL MORE MD BIRTHDATE: [birth year] DOS: 02/19/2018 CARDIOLOGY CONSULTATION CHIEF COMPLAINT: Lightheadedness, bradycardia. HISTORY OF PRESENT ILLNESS: The patient is a 52-year-old woman with risk factors of essential hypertension, prediabetes and obesity. I first evaluated her when she was hospitalized in 02/2017 and presented with atypical chest pain. She ruled out for a myocardial infarction. An echocardiogram showed normal left ventricular size with mild concentric left ventricular hypertrophy. She had normal wall motion and systolic function with stage 1 diastolic relaxation abnormalities. A pharmacologic myocardial perfusion study done on 03/25/2017 showed ejection fraction of 68% and no evidence for ischemia. She was then hospitalized in 07/2017 with pleuritic chest pain. During that hospitalization, she was found to have an abnormal lung scan indicating pulmonary emboli. This occurred one month after hip surgery. The patient was treated with Xarelto for 6 months and her chest symptoms resolved. She was otherwise well until about 5 days ago when she began having lightheadedness. She states that she has almost blacked out. She describes a feeling of weakness and spinning, but has not fallen. She notes a definite positional component to her dizziness and states that when she lies down, she feels like the room is spinning and she could fall off the bed. In the hospital, serial troponin levels have been normal. Her TSH was significantly elevated at 6.38. Orthostatic vital signs have been normal and her electrocardiogram shows only sinus bradycardia. PAST MEDICAL HISTORY: Includes: 1. Essential hypertension. 2. Peripheral edema, possibly due to diastolic heart failure, improved with hydrochlorothiazide. 3. History of right hydronephrosis as an infant, treated with kidney surgery and resolved. 4. Status post cholecystectomy. 5. History of left knee surgery on two occasions. 6. History of tonsillectomy. 7. Prediabetes. 8. History of depression. 9. No previously documented history of myocardial infarction or stroke. 10. Gastroesophageal reflux disease. 11. Echocardiogram on 03/25/2017, mild concentric left ventricular hypertrophy with mild left atrial enlargement, stage 1 diastolic relaxation abnormalities with normal systolic function, no valve abnormalities. 12. Pharmacologic myocardial perfusion study on 03/25/2017, ejection fraction 68%, no reversible ischemia, low risk study. 13. Lung scan on 08/11/2017 high probability for pulmonary emboli one month after hip surgery. [place], [place] REPORT OF CONSULTATION NAME: DONAVAN STANFORD UNIT #: [id number] ROOM: [facility] DOCTOR: PHIL MORE MD BIRTHDATE: [birth year] MEDICATIONS: Prior to admission, 1. Vitamin D3 2000 units daily. 2. Escitalopram 10 mg daily. 3. Gabapentin 300 mg t.i.d. for fibromyalgia. 4. Hydrochlorothiazide 25 mg daily. 5. Rivaroxaban up until a few weeks ago. This has been discontinued because the therapy was completed. 6. Tramadol p.r.n. pain. ALLERGIES: The patient lists allergies to MORPHINE AND TAPE. REVIEW OF SYSTEMS: The patient denies diplopia or loss of vision. She denies syncope, although she has been lightheaded. She is generally weak, but denies focal weakness. She does admit to true vertigo, especially with changes in head position. She denies vomiting. She has had some nausea. She denies fevers, chills, sweats or recent weight change. She denies hemoptysis or hematemesis and has not had any significant cough. She denies significant dyspnea. She has not had pleuritic chest pain since we treated her pulmonary emboli last winter. She denies any palpitations. She denies bleeding from her stools or urine. She denies any change in bowel or bladder habits. She does have some pedal edema, but denies any edema of her feet. She denies skin rashes, polydipsia or polyuria. Remainder of the review of systems is negative except as noted above. FAMILY HISTORY: Negative for early coronary artery disease. SOCIAL HISTORY: The patient does not drink alcohol or smoke cigarettes. She does use marijuana on occasion. PHYSICAL EXAMINATION: GENERAL: The patient is an overweight white female, who is awake, alert and oriented. VITAL SIGNS: Pulse is 60 and regular, blood pressure is 122/64. She is afebrile. She weighs 113.1 kg and has a body mass index of 42.8. HEENT: Normocephalic and atraumatic. Extraocular muscles are intact. Sclerae are clear. Pupils are equal, round and react to light. The oral mucosa is moist. Tongue is midline. NECK: Supple. She has no jugular distention. Carotids are full. I heard no bruits. She had no neck or supraclavicular masses and no thyromegaly. RESPIRATORY: Respirations are unlabored. Her chest is clear to auscultation and percussion. She has no presacral edema or chest wall tenderness. CARDIOVASCULAR: Her heart has a regular rhythm without murmurs or rubs. She has an S4 gallop, but no S3. The PMI is not displaced. There is no precordial heave, lift or thrill. ABDOMEN: Soft and normally active without masses, organomegaly or bruits. EXTREMITIES: Showed no edema. Peripheral pulses are easily palpated in the feet bilaterally. LABORATORY DATA: I reviewed her monitor strips at the telemetry station. She does show sinus rhythm with sinus bradycardia. There is no severe bradycardia recorded and no prolonged pause seen. Her electrocardiogram shows sinus [place], [place] REPORT OF CONSULTATION NAME: DONAVAN STANFORD UNIT #: [id number] ROOM: [facility] DOCTOR: PHIL MORE MD BIRTHDATE: [birth year] bradycardia at a rate of 48, but is an otherwise normal tracing. Hemoglobin is 14.2, white count 6800, platelet count 245,000. Sodium 143, potassium 4.1, BUN 17, creatinine 0.81. Serial troponins have been normal. TSH is elevated at 6.38. IMPRESSION: 1. Positional vertigo. Differential diagnosis would include medication reaction such as to gabapentin, benign positional vertigo, acute labyrinthitis, vertebrobasilar insufficiency, etc. of these labyrinthitis or positional vertigo, seen to be the most likely causes. 2. Sinus bradycardia. The patient is not on any medications that would cause this. In addition, her bradycardia is quite mild and unlikely to result in the variety of symptoms she is currently experiencing. She does show an elevation in her TSH and possibly this is exacerbated by hypothyroidism. 3. Recent pulmonary emboli. 4. Hypertension. 5. Type 2 diabetes mellitus. PLAN: At this point, I do not think that any further cardiac workup would be useful. I would probably replace her thyroid and see what her heart rate does after that. As regards to her dizziness, further workup for labyrinthitis, etc. might be fruitful, but I do not think that we can attribute this to a cardiac source. I would continue to avoid any heart rate slowing medications. We will see the patient intermittently with her other physicians while she is in the hospital. I thank the hospitalist physicians for asking our advice regarding her care. PHIL MORE MD CM:CONSTR:REPORT OF CONSULTATION 1557 02/20/18 0459 interface
--- NOTE | ~2018-02-18 | PR ---
[place], [place] PROGRESS NOTE NAME: DONAVAN STANFORD UNIT #: [id number] ROOM: 415 DOCTOR: PHIL MORE MD BIRTHDATE: [birth year] DOS: 02/20/2018 CARDIOLOGY PROGRESS NOTE SUBJECTIVE: The patient was seen at her bedside today, 02/20/2018 for followup of her bradycardia and dizziness. Her lab studies do show that she is hypothyroid with a TSH over 6. She has been started on thyroid replacement. This may increase her heart rate to a degree. A CAT scan of her head has been done to determine if she has some other cause for her vertigo. Gabapentin has been decreased. From a cardiac standpoint, there appears to be no significant abnormality that would explain her symptoms at this time. PHYSICAL EXAMINATION: VITAL SIGNS: On exam today, her pulse is 50 and regular, blood pressure is 100/50. She is afebrile. She weighs 113.1 kilograms with a body mass index of 42.8. HEENT: Normocephalic, atraumatic. Extraocular muscles are intact. NECK: Supple. Carotids are full. LUNGS: Respirations are unlabored. Chest is clear. HEART: Has a regular rhythm. She has a fourth heart sound, but no third heart sound. ABDOMEN: Obese, but otherwise benign. EXTREMITIES: Showed no edema. IMPRESSION: 1. Positional vertigo, etiology not yet determined and evaluation in progress. 2. Sinus bradycardia, probably exacerbated by hypothyroidism. 3. New documentation of hypothyroidism. 4. Recent pulmonary emboli. 5. Hypertension. 6. Type 2 diabetes mellitus. PLAN: I would continue to avoid heart rate slowing medications, but no other cardiac workup is planned at this time. We will sign off, but remain available to see her if needed. I thank the hospitalist physicians for asking our advice regarding her care. [place], [place] PROGRESS NOTE NAME: DONAVAN STANFORD UNIT #: [id number] ROOM: 415 DOCTOR: PHIL MORE MD BIRTHDATE: [birth year] PHIL MORE MD CM:PNTRANS [id number] 0003 PHIL MORE MD 02/21/18 0002 interface
[~2018-02-18 16:42] MED LIST changes: -DICYCLOMINE HCL10 MG PO; -GABAPENTIN400 MG PO; -LEXAPRO10 MG PO; -Synthroid,Levo25 MCG PO; -XARE20MG PO
[2018-02-18 16:47] VITALS: BP 138/70
[2018-02-18 17:24] LABS: BASO # 0.1 10*3/uL (0.0-0.1); EOS # 0.3 10*3/uL (0.0-0.4); EOS % 3.8 % (1.0-4.0); HEMATOCRIT 46.2 % (37.0-47.0); HEMOGLOBIN 15.4 g/dl (12.0-16.0); LYMPH # 3.7 10*3/uL (1.3-4.4); LYMPH % 45.8 % (27.0-41.0); MEAN CELL VOLUME 89.7 fl (81.0-99.0); MEAN CORPUSCULAR HGB 29.9 pg (27.0-31.0); MEAN CORPUSCULAR HGB CONC 33.3 g/dl (33.0-37.0); MEAN PLATELET VOLUME 11.3 fl (9.6-12.3); MONO # 0.6 10*3/uL (0.1-1.0); MONO % 7.4 % (3.0-9.0); NEUT # 3.4 10*3/uL (2.3-7.9); NEUT % 41.8 % (47.0-73.0); PLATELET COUNT AUTOMATED 253 10*3/uL (130-400); RED BLOOD COUNT 5.15 10*6/uL (4.10-5.10); RED CELL DISTRI WIDTH 14.1 % (0-14.5); WHITE BLOOD COUNT 8.1 10*3/uL (4.8-10.8)
[2018-02-18 17:35] LABS: INTERNATIONAL NORM RATIO 0.9 (2.0-3.5)
[2018-02-18 17:42] LABS: ALBUMIN 3.9 gm/dl (3.1-4.5); ALKALINE PHOSPHATASE 69 U/L (45-117); BUN 17 mg/dl (7-24); CHLORIDE 106 mmol/L (98-107); CREATININE 0.83 mg/dL (0.55-1.02); SGOT/AST 54 IU/L (3-35); SGPT/ALT 51 U/L (12-78); SODIUM 141 mmol/L (136-145); TOTAL PROTEIN 7.9 gm/dL (6.4-8.2)
[2018-02-18 17:43] LABS: TROPONIN I < 0.015 ng/ml (<0.045)
[2018-02-18 18:38] VITALS: BP 110/57
[2018-02-18 19:16] VITALS: BP 127/61
[2018-02-18 20:00] VITALS: BP 108/76
[2018-02-18] MEDS ORDERED: LEXAPRO10 MG PO (20:46)
[2018-02-18 22:23] LABS: BILIRUBIN NEGATIVE (NEGATIVE); BLOOD NEGATIVE (NEGATIVE); CLARITY CLEAR (CLEAR); COLOR YELLOW (YELLOW); GLUCOSE NEGATIVE (NEGATIVE); KETONE NEGATIVE (NEGATIVE); LEUKO ESTERASE NEGATIVE (NEGATIVE); NITRITE NEGATIVE (NEGATIVE); PH 5.5 (5.0-9.0); SPECIFIC GRAVITY 1.025 (1.005-1.030); UROBILINOGEN 0.2 E.U./dl (0.2-1.0)
[2018-02-18 22:33] LABS: URINE AMPHETAMINES < 1000 (1000ng/ml); URINE BARBITURATES < 200 (200ng/ml); URINE BENZODIAZEPINES < 200 (200ng/ml); URINE CANNABINOIDS (THC) > 50 (50ng/ml); URINE COCAINE < 300 (300ng/ml); URINE METHADONE < 300 (300ng/ml); URINE OPIATES < 300 (300ng/ml)
[2018-02-18 22:37] LABS: URINE PHENCYCLIDINE < 25 (25ng/ml)
[2018-02-18 22:46] LABS: EPITHELIAL CELLS 0-2; RBC 0-2 rbc/hpf (0-2); WBC 0-2 wbc/hpf (0-5)
[2018-02-19] VITALS: BP 120/65
[2018-02-19 06:08] LABS: BASO # 0.1 10*3/uL (0.0-0.1); BASO % 1.2 % (0.0-1.0); EOS # 0.3 10*3/uL (0.0-0.4); HEMATOCRIT 44.2 % (37.0-47.0); HEMOGLOBIN 14.2 g/dl (12.0-16.0); LYMPH # 3.7 10*3/uL (1.3-4.4); LYMPH % 54.9 % (27.0-41.0); MEAN CELL VOLUME 91.9 fl (81.0-99.0); MEAN CORPUSCULAR HGB 29.5 pg (27.0-31.0); MEAN CORPUSCULAR HGB CONC 32.1 g/dl (33.0-37.0); MEAN PLATELET VOLUME 11.3 fl (9.6-12.3); MONO # 0.6 10*3/uL (0.1-1.0); MONO % 8.4 % (3.0-9.0); NEUT # 2.1 10*3/uL (2.3-7.9); NEUT % 30.2 % (47.0-73.0); PLATELET COUNT AUTOMATED 245 10*3/uL (130-400); RED BLOOD COUNT 4.81 10*6/uL (4.10-5.10); RED CELL DISTRI WIDTH 14.2 % (0-14.5); WHITE BLOOD COUNT 6.8 10*3/uL (4.8-10.8)
[2018-02-19 06:30] LABS: ALBUMIN 3.4 gm/dl (3.1-4.5); ALKALINE PHOSPHATASE 65 U/L (45-117); BUN 17 mg/dl (7-24); CHLORIDE 106 mmol/L (98-107); CREATININE 0.81 mg/dL (0.55-1.02); PHOSPHOROUS 4.3 mg/dL (2.5-4.9); POTASSIUM 4.1 mmol/L (3.5-5.1); SGOT/AST 40 IU/L (3-35); SGPT/ALT 42 U/L (12-78); SODIUM 143 mmol/L (136-145)
[2018-02-19 06:39] LABS: TOTAL PROTEIN 6.8 gm/dL (6.4-8.2)
[2018-02-19 08:00] VITALS: BP 116/61
[2018-02-19 12:00] VITALS: BP 122/64
[2018-02-19 16:00] VITALS: BP 105/55
[2018-02-19 20:00] VITALS: BP 126/50
[2018-02-20] VITALS: BP 100/50
[2018-02-20] MEDS ORDERED: GABAPENTIN400 MG PO (03:52)
[2018-02-20] MEDS ORDERED: XARE20MG PO (03:54)
[2018-02-20 07:11] LABS: BASO # 0.1 10*3/uL (0.0-0.1); BASO % 1.3 % (0.0-1.0); EOS # 0.3 10*3/uL (0.0-0.4); EOS % 5.1 % (1.0-4.0); HEMOGLOBIN 13.9 g/dl (12.0-16.0); LYMPH # 3.5 10*3/uL (1.3-4.4); MEAN CELL VOLUME 92.6 fl (81.0-99.0); MEAN CORPUSCULAR HGB 29.3 pg (27.0-31.0); MEAN CORPUSCULAR HGB CONC 31.6 g/dl (33.0-37.0); MEAN PLATELET VOLUME 11.5 fl (9.6-12.3); MONO # 0.5 10*3/uL (0.1-1.0); MONO % 8.3 % (3.0-9.0); NEUT # 1.8 10*3/uL (2.3-7.9); NEUT % 29.1 % (47.0-73.0); PLATELET COUNT AUTOMATED 238 10*3/uL (130-400); RED BLOOD COUNT 4.75 10*6/uL (4.10-5.10); RED CELL DISTRI WIDTH 14.1 % (0-14.5); WHITE BLOOD COUNT 6.3 10*3/uL (4.8-10.8)
[2018-02-20 07:24] LABS: ALBUMIN 3.2 gm/dl (3.1-4.5); CHLORIDE 109 mmol/L (98-107); POTASSIUM 4.2 mmol/L (3.5-5.1); SODIUM 144 mmol/L (136-145)
[2018-02-20 07:28] LABS: ALKALINE PHOSPHATASE 58 U/L (45-117); BUN 15 mg/dl (7-24); CREATININE 0.71 mg/dL (0.55-1.02); SGOT/AST 44 IU/L (3-35); SGPT/ALT 45 U/L (12-78); TOTAL PROTEIN 6.8 gm/dL (6.4-8.2)
[2018-02-20 08:00] VITALS: BP 94/52
[2018-02-20] MEDS ORDERED: DICYCLOMINE HCL10 MG PO (09:29)
[2018-02-20 12:00] VITALS: BP 125/67
[2018-02-20 16:00] VITALS: BP 116/46
[2018-02-20 20:00] VITALS: BP 113/72
[2018-02-21] VITALS: BP 109/70
[2018-02-21 08:00] VITALS: BP 102/56
[2018-02-21] MEDS ORDERED: Synthroid,Levo25 MCG PO (11:39)
[2018-02-21] MEDS ORDERED: MECLIZINE HCL25 M2 PO (11:39)
[2018-02-21 12:00] VITALS: BP 110/50
[2018-02-21] MEDS ORDERED: NEURONTIN300 MG PO (13:12)
[2018-02-21] MEDS ORDERED: HYDR25T PO (13:12)
== END 2018-02-21 15:12 | disposition home or self-care (01) | DRG 149 ==
LOC: ED 16:42 → 4E 18:43 → EDHOLD 18:43 → 4E 19:39
PROVIDERS: Internal Medicine Hospice and Palliative Medicine; Internal Medicine Nephrology; Physician Assistant
DX: H81.10 Benign paroxysmal vertigo, unspecified ear (principal); I95.9 Hypotension, unspecified; E87.8 Other disorders of electrolyte and fluid balance, not elsewhere classified; E66.01 Morbid (severe) obesity due to excess calories; E83.41 Hypermagnesemia; E11.65 Type 2 diabetes mellitus with hyperglycemia; Z68.41 Body mass index [BMI] 40.0-44.9, adult; H83.09 Labyrinthitis, unspecified ear; F12.10 Cannabis abuse, uncomplicated; R00.1 Bradycardia, unspecified; R42 Dizziness and giddiness; R60.9 Edema, unspecified; F32.9 Major depressive disorder, single episode, unspecified; I10 Essential (primary) hypertension; E55.9 Vitamin D deficiency, unspecified; M79.7 Fibromyalgia; K44.9 Diaphragmatic hernia without obstruction or gangrene; M19.90 Unspecified osteoarthritis, unspecified site; E03.9 Hypothyroidism, unspecified; E11.9 Type 2 diabetes mellitus without complications; K21.9 Gastro-esophageal reflux disease without esophagitis; Z96.649 Presence of unspecified artificial hip joint; Z86.711 Personal history of pulmonary embolism; Z86.718 Personal history of other venous thrombosis and embolism; Z90.89 Acquired absence of other organs; Z90.49 Acquired absence of other specified parts of digestive tract; Z98.51 Tubal ligation status; Z82.3 Family history of stroke; Z80.8 Family history of malignant neoplasm of other organs or systems; Z88.6 Allergy status to analgesic agent; Z91.048 Other nonmedicinal substance allergy status; Z79.899 Other long term (current) drug therapy

== ENCOUNTER 2018-03-08 18:02 | Inpatient (IN) | payer OTHER ==
[~2018-03-08] VITALS: Ht 162.5 cm; Wt 115.3 kg
--- NOTE | ~2018-03-08 | CON ---
[place], [place] REPORT OF CONSULTATION NAME: DONAVAN STANFORD UNIT #: [id number] ROOM: 408 DOCTOR: PHIL MORE MD BIRTHDATE: [birth year] DOS: 03/09/2018 CARDIOLOGY CONSULTATION REASON FOR CARDIOLOGY CONSULTATION: Lightheadedness and dizziness, bradycardia. HISTORY OF PRESENT ILLNESS: This is one of several recent hospitalizations for this patient who is a 52-year-old woman with a history of essential hypertension, prediabetes, obesity and fibromyalgia. She was seen today on 03/09/2018. She was most recently hospitalized 02/19/2018 when she presented with lightheadedness and vertigo. I first evaluated the patient when she was hospitalized in 02/2017 with atypical chest pain. She ruled out for myocardial infarction. An echocardiogram showed normal left ventricular size with mild concentric left ventricular hypertrophy and stage 1 diastolic relaxation abnormalities. A pharmacologic myocardial perfusion study done on 03/25/2017 showed ejection fraction of 68% and no ischemia. She was subsequently hospitalized in 07/2017 with pleuritic chest pain 1 month after hip surgery. A lung scan showed pulmonary emboli which was treated with anticoagulation for 6 months. She was otherwise well until 02/12/2018 when she began having problems with lightheadedness and near syncope. She had a feeling of weakness and a feeling that the room was spinning. There is a definite positional component to her dizziness and when she lies down, she often feels like the room is spinning and that she could fall off the bed. This occurred shortly after she was placed on an increased dose of Lexapro. In the hospital, it was noted that she was bradycardic with heart rates in the 40s and 50s. She did not, however, have any prolonged pauses and the monitor showed that she was in sinus bradycardia the entire time. During hours of sleep, her heart rate could go into the high 30s. She was noted during that hospitalization to have an elevated TSH and therefore was placed on thyroid replacement. She was discharged to home and saw her psychologist who stated that they would discuss changing the dose of her Lexapro or stopping it completely with a psychiatrist; however, no changes in her medication have been made. Since that discharge, she has felt about the same. She continues to be weak. She continues to have true vertigo, which occurs whether she is sitting or lying down, although it seems to be worse when she lies down. Because her symptoms seemed to be getting worse, she came into the hospital again last evening. PAST MEDICAL HISTORY: Includes: 1. Essential hypertension. 2. Peripheral edema, possibly due to diastolic heart failure and improved with hydrochlorothiazide. 3. Right hydronephrosis as an infant, treated with kidney surgery and resolved. 4. History of cholecystectomy. 5. History of left knee surgery on 2 occasions. 6. History of tonsillectomy. 7. Prediabetes. [place], [place] REPORT OF CONSULTATION NAME: DONAVAN STANFORD UNIT #: [id number] ROOM: 408 DOCTOR: PHIL MORE MD BIRTHDATE: [birth year] 8. History of depression. 9. No previously documented history of myocardial infarction or stroke. 10. Gastroesophageal reflux disease. 11. Echocardiogram 03/25/2017, mild concentric left ventricular hypertrophy with mild left atrial enlargement. Stage 1 diastolic relaxation abnormalities with normal systolic function, no valve abnormalities. 12. Pharmacologic myocardial perfusion study 03/25/2017, ejection fraction 67%, no reversible ischemia, low risk study. 13. Lung scan 08/11/2017, high probability for pulmonary emboli one month after hip surgery. The patient was treated with 6 months of direct oral anticoagulation therapy. MEDICATIONS: Prior to the current admission, cholecalciferol 2000 units daily, Lexapro 10 mg daily, gabapentin 300 mg t.i.d., hydrochlorothiazide 12.5 mg daily, levothyroxine 25 mcg daily and meclizine 25 mg b.i.d. ALLERGIES: The patient lists allergies to MORPHINE and TAPE. REVIEW OF SYSTEMS: The patient denies diplopia or loss of vision. She denies syncope, but feels lightheaded. She denies focal weakness. She denies nausea or vomiting. She has not had fevers, chills, sweats or recent weight change. She denies any hemoptysis or cough. She denies any significant dyspnea. She denies palpitations. She does feel like she could pass out, but has not fainted. She denies any hematemesis. She denies bleeding from stools or urine. She denies any pedal edema. She denies any skin rashes. She denies polyuria or polydipsia. She denies heat or cold intolerance. The remainder of the review of systems is negative except as noted above. FAMILY HISTORY: Negative for early coronary artery disease. SOCIAL HISTORY: The patient does not smoke or consume alcohol. She does use marijuana occasionally, but no other illicit drugs. PHYSICAL EXAMINATION: GENERAL: The patient is an overweight white female who is awake, alert and oriented. VITAL SIGNS: Pulse is 56 and regular, blood pressure is 139/74. She is afebrile. She weighs 115.3 kg and has a body mass index of 43.7. HEENT: Normocephalic and atraumatic. Extraocular muscles are intact. Sclerae are clear. Pupils equal, round and react to light. The oral mucosa is moist. Tongue is midline. NECK: Supple. She has no jugular distention. Carotids are full. I heard no bruits. She had no neck or supraclavicular masses, no thyromegaly. RESPIRATORY: Respirations are unlabored. Her chest is clear to auscultation and percussion. She has no presacral edema or chest wall tenderness. CARDIOVASCULAR: Her heart has a regular rhythm. She has a fourth heart sound, but no third heart sound. The PMI is not displaced. There is no significant murmur. There is no precordial heave, lift or thrill. ABDOMEN: Soft and normally active without masses, organomegaly or bruits. EXTREMITIES: Showed no edema. Peripheral pulses are palpable in the feet. [place], [place] REPORT OF CONSULTATION NAME: DONAVAN STANFORD UNIT #: [id number] ROOM: 408 DOCTOR: PHIL MORE MD BIRTHDATE: [birth year] LABORATORY DATA: Hemoglobin is 14.4, hematocrit 44.2. There are 7500 white cells, 256,000 platelets. INR 0.9. Sodium is 142, potassium 3.9, chloride 104, CO2 of 29, BUN 13, creatinine 0.83. Troponin levels have been normal. Free T4 is normal at 0.91. TSH is now normal at 2.05, free T3 is pending. IMPRESSIONS: 1. Lightheadedness and true vertigo. This occurred shortly after the patient was placed on her current dose of Lexapro. These symptoms are often a side effect of Lexapro and I think that this is the most likely cause of her current state. 2. Bradycardia. The patient does have sinus bradycardia with rates down to 38 beats per minute when she is sleeping. I think that this is an incidental finding in her. I do not think that we can explain all of her symptoms based on the bradycardia, especially since she frequently has her symptoms lying down. Review of her monitor shows no prolonged pauses. 3. History of essential hypertension. 4. History of fibromyalgia. 5. History of deep venous thrombosis and pulmonary embolism. 6. Prediabetes. PLAN: I would like to evaluate the patient with an exercise treadmill test. I would like to do the study simply to document that she has normal chronotropic response to exercise. This would be another indication that her bradycardia is physiologic and does not cause her symptoms. I think that if possible, her Lexapro should be stopped or changed to another agent. We should make sure that she is adequately replaced for her hypothyroidism and follow her clinically. I do not think any other cardiac workup at this point would be helpful. I thank the hospitalist physicians for asking our advice regarding her care. PHIL MORE MD CM:CONSTR:REPORT OF CONSULTATION 1348 03/09/18 2206 interface
--- NOTE | ~2018-03-08 | EKG ---
[place], [place] ELECTROCARDIOGRAM REPORT NAME: DONAVAN STANFORD UNIT #: [id number] ROOM: 408 DOCTOR: NATHAN DRAFT REPORT BIRTHDATE: [birth year] [facility] Test Date: 2018-03-08 Test Time: 18:16:00 Pat Name: DONAVAN STANFORD Department: ER Room: 20 Gender: F [employer]: 51 : 1965 Requested By: YVES TAY Order Number: [id number] Reading MD: Malvin Devine MD Measurements Intervals Bryson Rate: 47 P: 14 NM: 167 QRS: 10 QRSD: 86 T: 15 QT: 448 QTc: 396 Interpretive Statements Sinus bradycardia Low voltage, precordial leads Baseline wander in lead(s) V4 Electronically Signed On 03-08-2018 19:36:12 PDT by Malvin Devine MD CM:EKGRPT:ELECTROCARDIOGRAM REPORT 15 35 YVES TAY EPIPHANY DRAFT REPORT YVES TAY
--- NOTE | ~2018-03-08 | CON ---
[place], [place] REPORT OF CONSULTATION NAME: DONAVAN STANFORD UNIT #: [id number] ROOM: 408 DOCTOR: CARL CARDOSO MD BIRTHDATE: [birth year] DOS: 03/10/2018 HISTORY OF PRESENT ILLNESS: This is a 52-year-old -[place] woman with a history of positional vertigo, essential hypertension and some edema of the lower extremities, who has had slow heart rate. She also has depression and has a tonsillectomy and has GERD. She had an echocardiogram about a year ago, which demonstrated normal LV systolic function with mild LVH and a stress test at that time demonstrated no ischemia. She was admitted to the hospital because her doctor found her heart rate to be slow and was admitted for observation. She is not on any medications to affect her heart rate. She does not have any undue shortness of breath other than related to obesity. No chest pain or palpitations. She is off balance at times and there is no sense that she is going to pass out and she has no lightheadedness. She has not had a PND, orthopnea, or any obvious swelling of the legs. Her medications were reviewed and there are none that affects the conduction system of the heart. PHYSICAL EXAMINATION: GENERAL: The patient is very pleasant, alert, oriented, moderately obese. There is no thyromegaly or finger clubbing. VITAL SIGNS: Pulse is 56, regular, blood pressure 136/72. NECK: Normal JVP. Normal AJR. There is no carotid bruit. HEART: There is no cardiomegaly. Murmurs are not present. EXTREMITIES: Good pedal pulses and no edema in the lower extremities. RESPIRATORY: She is not tachypneic. LUNGS: Clear to percussion and auscultation. ABDOMEN: Supple, nontender. No bruit or pulsatile mass. LABORATORY DATA: An ECG on admission demonstrated sinus bradycardia at 47 beats per minute and the monitor has shown a sinus bradycardia, particularly when she is sleeping with a heart rate of 38 beats per minute. Lab is unremarkable. I walked the patient in the hallway. Her heart rate was 66 beats per minute when she was standing. After walking a couple of 100 yards, monitor shows heart rate of about 93 beats per minute. IMPRESSION: This patient has mild bradycardia while awake, moderate bradycardia while she is sleeping; however, chronotropic is normal, i.e., heart rate increased appropriately and she was asymptomatic. She does not require any further cardiac workup and does not need a pacemaker. I thank you on behalf of Dr. Mcallister for this consult. [place], [place] REPORT OF CONSULTATION NAME: DONAVAN STANFORD UNIT #: [id number] ROOM: [facility] DOCTOR: CARL CARDOSO MD BIRTHDATE: [birth year] CARL CARDOSO MD CM:CONSTR:REPORT OF CONSULTATION 1729 03/21/18 0717 interface
[~2018-03-08 18:02] MED LIST changes: +DICYCLOMINE HCL10 MG PO; +GABAPENTIN400 MG PO; +LEXAPRO10 MG PO; +Synthroid,Levo25 MCG PO; +XARE20MG PO
[2018-03-08 18:03] VITALS: BP 147/82
[2018-03-08 18:19] LABS: BASO # 0.1 10*3/uL (0.0-0.1); BASO % 1.1 % (0.0-1.0); EOS # 0.3 10*3/uL (0.0-0.4); EOS % 4.3 % (1.0-4.0); HEMATOCRIT 44.2 % (37.0-47.0); HEMOGLOBIN 14.4 g/dl (12.0-16.0); LYMPH # 3.6 10*3/uL (1.3-4.4); LYMPH % 48.1 % (27.0-41.0); MEAN CORPUSCULAR HGB 29.3 pg (27.0-31.0); MEAN CORPUSCULAR HGB CONC 32.6 g/dl (33.0-37.0); MONO # 0.6 10*3/uL (0.1-1.0); MONO % 7.4 % (3.0-9.0); NEUT # 2.9 10*3/uL (2.3-7.9); PLATELET COUNT AUTOMATED 256 10*3/uL (130-400); RED BLOOD COUNT 4.91 10*6/uL (4.10-5.10); RED CELL DISTRI WIDTH 14.4 % (0-14.5); WHITE BLOOD COUNT 7.5 10*3/uL (4.8-10.8)
[2018-03-08 18:29] LABS: ACT PARTIAL THROMBO TIME 22.9 SECONDS (20.8-31.5); INTERNATIONAL NORM RATIO 0.9 (2.0-3.5)
[2018-03-08 18:38] LABS: ALBUMIN 3.8 gm/dl (3.1-4.5); ALKALINE PHOSPHATASE 71 U/L (45-117); BUN 14 mg/dl (7-24); CHLORIDE 107 mmol/L (98-107); CREATININE 0.81 mg/dL (0.55-1.02); POTASSIUM 4.1 mmol/L (3.5-5.1); SGOT/AST 34 IU/L (3-35); SGPT/ALT 39 U/L (12-78); SODIUM 143 mmol/L (136-145); TOTAL PROTEIN 7.7 gm/dL (6.4-8.2)
[2018-03-08 18:42] LABS: TROPONIN I < 0.015 ng/ml (<0.045)
[2018-03-08 19:10] VITALS: BP 131/68
[2018-03-08 19:47] LABS: BILIRUBIN NEGATIVE (NEGATIVE); BLOOD NEGATIVE (NEGATIVE); CLARITY CLEAR (CLEAR); COLOR YELLOW (YELLOW); GLUCOSE NEGATIVE (NEGATIVE); KETONE NEGATIVE (NEGATIVE); LEUKO ESTERASE NEGATIVE (NEGATIVE); NITRITE NEGATIVE (NEGATIVE); SPECIFIC GRAVITY 1.025 (1.005-1.030); UROBILINOGEN 0.2 E.U./dl (0.2-1.0)
[2018-03-08 19:54] LABS: BACTERIA 1+; EPITHELIAL CELLS 0-2; WBC 0-2 wbc/hpf (0-5)
[2018-03-08 21:00] VITALS: BP 134/86; BP 142/71
[2018-03-09] VITALS: BP 143/75
[2018-03-09 06:44] LABS: BUN 13 mg/dl (7-24); CHLORIDE 104 mmol/L (98-107); CREATININE 0.83 mg/dL (0.55-1.02); PHOSPHOROUS 4.5 mg/dL (2.5-4.9); POTASSIUM 3.9 mmol/L (3.5-5.1); SODIUM 142 mmol/L (136-145)
[2018-03-09 06:45] LABS: FREE T4 0.91 ng/dl (0.76-1.46)
[2018-03-09 08:00] VITALS: BP 126/52
[2018-03-09 12:00] VITALS: BP 139/74
[2018-03-09 16:00] VITALS: BP 123/53
[2018-03-09 20:00] VITALS: BP 138/61
[2018-03-10] VITALS: BP 139/56
[2018-03-10 06:38] LABS: BASO # 0.1 10*3/uL (0.0-0.1); BASO % 1.2 % (0.0-1.0); EOS # 0.4 10*3/uL (0.0-0.4); EOS % 5.5 % (1.0-4.0); HEMOGLOBIN 13.8 g/dl (12.0-16.0); LYMPH # 3.5 10*3/uL (1.3-4.4); LYMPH % 49.6 % (27.0-41.0); MEAN CELL VOLUME 91.9 fl (81.0-99.0); MEAN CORPUSCULAR HGB 29.5 pg (27.0-31.0); MEAN CORPUSCULAR HGB CONC 32.1 g/dl (33.0-37.0); MONO # 0.6 10*3/uL (0.1-1.0); MONO % 8.5 % (3.0-9.0); NEUT # 2.4 10*3/uL (2.3-7.9); NEUT % 35.1 % (47.0-73.0); PLATELET COUNT AUTOMATED 245 10*3/uL (130-400); RED BLOOD COUNT 4.68 10*6/uL (4.10-5.10); RED CELL DISTRI WIDTH 14.2 % (0-14.5)
[2018-03-10 07:00] LABS: ALBUMIN 3.5 gm/dl (3.1-4.5); BUN 16 mg/dl (7-24); CHLORIDE 104 mmol/L (98-107); CREATININE 0.86 mg/dL (0.55-1.02); POTASSIUM 4.3 mmol/L (3.5-5.1); SGOT/AST 26 IU/L (3-35); SGPT/ALT 33 U/L (12-78); SODIUM 140 mmol/L (136-145)
[2018-03-10 07:01] LABS: ALKALINE PHOSPHATASE 66 U/L (45-117); TOTAL PROTEIN 7.4 gm/dL (6.4-8.2)
[2018-03-10 08:00] VITALS: BP 136/72
[2018-03-10 12:00] VITALS: BP 132/70
[2018-03-10 16:00] VITALS: BP 118/63
== END 2018-03-10 19:54 | disposition home or self-care (01) | DRG 312 ==
LOC: ED 18:02 → EDHOLD 18:56 → 4E 18:56
PROVIDERS: Family Medicine; Nurse Practitioner Family; Student in an Organized Health Care Education/Training Program
DX: R55 Syncope and collapse (principal); E66.01 Morbid (severe) obesity due to excess calories; F33.9 Major depressive disorder, recurrent, unspecified; Z68.41 Body mass index [BMI] 40.0-44.9, adult; E83.41 Hypermagnesemia; R00.1 Bradycardia, unspecified; D72.820 Lymphocytosis (symptomatic); I10 Essential (primary) hypertension; K44.9 Diaphragmatic hernia without obstruction or gangrene; F12.10 Cannabis abuse, uncomplicated; R73.03 Prediabetes; K21.9 Gastro-esophageal reflux disease without esophagitis; M19.90 Unspecified osteoarthritis, unspecified site; E03.9 Hypothyroidism, unspecified; M79.7 Fibromyalgia; R07.89 Other chest pain; R42 Dizziness and giddiness; R79.89 Other specified abnormal findings of blood chemistry; Z88.5 Allergy status to narcotic agent; Z91.09 Other allergy status, other than to drugs and biological substances; Z90.49 Acquired absence of other specified parts of digestive tract; Z82.49 Family history of ischemic heart disease and other diseases of the circulatory system; Z82.3 Family history of stroke; Z80.9 Family history of malignant neoplasm, unspecified; Z86.718 Personal history of other venous thrombosis and embolism; Z86.711 Personal history of pulmonary embolism; Z79.01 Long term (current) use of anticoagulants; Z79.899 Other long term (current) drug therapy

== ENCOUNTER → 2018-03-20 | Outpatient (CLI) | payer OTHER | END | disposition home or self-care (01) | LOC: RESCLI 01:35 | DX: I10 Essential (primary) hypertension (principal); R00.1 Bradycardia, unspecified; R07.9 Chest pain, unspecified; F33.9 Major depressive disorder, recurrent, unspecified; E03.9 Hypothyroidism, unspecified; R73.03 Prediabetes; E55.9 Vitamin D deficiency, unspecified; E66.01 Morbid (severe) obesity due to excess calories; R42 Dizziness and giddiness ==

== ENCOUNTER → 2018-05-09 | Outpatient (CLI) | payer OTHER | END | disposition home or self-care (01) | LOC: RESCLI 02:53 | DX: F33.9 Major depressive disorder, recurrent, unspecified (principal); R00.1 Bradycardia, unspecified; I10 Essential (primary) hypertension; E03.9 Hypothyroidism, unspecified; R73.03 Prediabetes; E55.9 Vitamin D deficiency, unspecified; E66.01 Morbid (severe) obesity due to excess calories; R42 Dizziness and giddiness; M79.7 Fibromyalgia; M54.30 Sciatica, unspecified side; Z79.899 Other long term (current) drug therapy; Z88.8 Allergy status to other drugs, medicaments and biological substances ==

== ENCOUNTER → 2018-05-28 | Outpatient (CLI) | payer OTHER ==
--- NOTE | ~2018-05-28 | HM ---
[place], [place] HOLTER MONITOR REPORT NAME: DONAVAN STANFORD UNIT #: [id number] ROOM: DOCTOR: PHIL MORE MD BIRTHDATE: [birth year] DOS: 05/29/2018 A 24-HOUR HOLTER MONITOR Study was recorded from 05/28/2018 to 05/29/2018. The recording was analyzed and the study was interpreted on 05/29/2018. INDICATIONS: Bradycardia. FINDINGS: The patient was recorded utilizing a Holter device for 24 hours. The rhythm was normal sinus with an average heart rate of 68. The sinus heart rate varied from 43 beats per minute at 7:12 p.m. to 128 beats per minute at 10:46 p.m. The patient had no ventricular arrhythmias recorded. Specifically, there were no PVCs or ventricular tachycardia. The patient had occasional premature atrial contractions. Seven couplets were recorded. There were no prolonged pauses. There was no SVT. No diary was returned. IMPRESSION: 1. Normal sinus rhythm with average heart rate 68. 2. Occasional premature beats with rare atrial couplets noted. 3. No ventricular arrhythmias. 4. No pauses. 5. No diary submitted. PHIL MORE MD CM:HOLTER:HOLTER MONITOR REPORT 13 46 DARIEN BOB MD
== END | disposition home or self-care (01) ==
LOC: MAMMO 05-27 14:00
DX: Z12.31 Encounter for screening mammogram for malignant neoplasm of breast (principal); R00.1 Bradycardia, unspecified

== ENCOUNTER → 2018-06-12 | Outpatient (CLI) | payer OTHER | END | disposition home or self-care (01) | LOC: RESCLI 02:39 | DX: I10 Essential (primary) hypertension (principal); E03.9 Hypothyroidism, unspecified; E55.9 Vitamin D deficiency, unspecified; E66.01 Morbid (severe) obesity due to excess calories; M79.7 Fibromyalgia; M54.30 Sciatica, unspecified side; F33.9 Major depressive disorder, recurrent, unspecified; R42 Dizziness and giddiness; R00.1 Bradycardia, unspecified; R73.03 Prediabetes; Z90.49 Acquired absence of other specified parts of digestive tract; Z88.2 Allergy status to sulfonamides ==

== ENCOUNTER → 2018-07-15 | Outpatient (CLI) | payer OTHER | END | disposition home or self-care (01) | LOC: RESCLI 04:22 | DX: I10 Essential (primary) hypertension (principal); F33.9 Major depressive disorder, recurrent, unspecified; E03.9 Hypothyroidism, unspecified; R73.03 Prediabetes; E55.9 Vitamin D deficiency, unspecified; R42 Dizziness and giddiness; M79.7 Fibromyalgia; M54.30 Sciatica, unspecified side; E66.01 Morbid (severe) obesity due to excess calories; Z68.41 Body mass index [BMI] 40.0-44.9, adult ==

== ENCOUNTER → 2018-12-01 | Outpatient (CLI) | payer OTHER ==
[~2018-12-01] MED LIST changes: +CYCLOBENZAPRINE5 M3 PO; +Kenalog 0.5% Cr15 GM T; +PREDNISONE50 MG PO
== END | disposition home or self-care (01) ==
LOC: RESCLI 01:01
DX: E03.9 Hypothyroidism, unspecified (principal); F33.9 Major depressive disorder, recurrent, unspecified; I10 Essential (primary) hypertension; E55.9 Vitamin D deficiency, unspecified; R42 Dizziness and giddiness; M79.7 Fibromyalgia; M54.30 Sciatica, unspecified side; J30.2 Other seasonal allergic rhinitis; Z79.899 Other long term (current) drug therapy; Z90.49 Acquired absence of other specified parts of digestive tract; Z88.8 Allergy status to other drugs, medicaments and biological substances; Z91.048 Other nonmedicinal substance allergy status

== ENCOUNTER → 2019-05-05 | Outpatient (CLI) | payer OTHER | END | disposition home or self-care (01) | LOC: RESCLI 00:13 | DX: F33.9 Major depressive disorder, recurrent, unspecified (principal); I10 Essential (primary) hypertension; E03.9 Hypothyroidism, unspecified; E55.9 Vitamin D deficiency, unspecified; R42 Dizziness and giddiness; M79.7 Fibromyalgia; M54.30 Sciatica, unspecified side; J30.2 Other seasonal allergic rhinitis; Z79.899 Other long term (current) drug therapy ==

== ENCOUNTER → 2019-06-11 | Outpatient (CLI) | payer OTHER ==
[2019-06-11 15:42] LABS: BASO # 0.1 10*3/uL (0.0-0.1); BASO % 1.2 % (0.0-1.0); EOS # 0.3 10*3/uL (0.0-0.4); EOS % 3.8 % (1.0-4.0); HEMATOCRIT 48.4 % (37.0-47.0); HEMOGLOBIN 15.5 g/dl (12.0-16.0); LYMPH # 3.3 10*3/uL (1.3-4.4); LYMPH % 48.1 % (27.0-41.0); MEAN CORPUSCULAR HGB 29.1 pg (27.0-31.0); MEAN PLATELET VOLUME 10.8 fl (9.6-12.3); MONO # 0.5 10*3/uL (0.1-1.0); MONO % 7.8 % (3.0-9.0); NEUT # 2.6 10*3/uL (2.3-7.9); PLATELET COUNT AUTOMATED 279 10*3/uL (130-400); RED BLOOD COUNT 5.32 10*6/uL (4.10-5.10); RED CELL DISTRI WIDTH 13.7 % (0-14.5); WHITE BLOOD COUNT 6.8 10*3/uL (4.8-10.8)
[2019-06-11 16:13] LABS: ALBUMIN 3.9 gm/dl (3.1-4.5); ALKALINE PHOSPHATASE 84 U/L (45-117); BUN 16 mg/dl (7-24); CHLORIDE 104 mmol/L (98-107); CHOLESTEROL 227 mg/dL (<200); CREATININE 0.86 mg/dL (0.55-1.02); HDL CHOLESTEROL 48 mg/dl (40-60); LDL CHOLESTEROL 145 mg/dL (9-159); POTASSIUM 4.7 mmol/L (3.5-5.1); SGOT/AST 17 IU/L (3-35); SGPT/ALT 20 U/L (12-78); SODIUM 139 mmol/L (136-145); TOTAL PROTEIN 8.1 gm/dL (6.4-8.2); TRIGLYCERIDES 172 mg/dl (<150); VLDL CHOLESTEROL 34 mg/dL (6-40)
[2019-06-11 16:14] LABS: FREE T4 0.85 ng/dl (0.76-1.46)
[2019-06-11 16:19] LABS: THYROID STIM HORMONE (HS) 3.52 uIU/ml (0.358-4.75)
== END | disposition home or self-care (01) ==
LOC: MRI 05-13 14:00 → LAB 14:00 → MRI 14:00
PROVIDERS: Otolaryngology Plastic Surgery within the Head & Neck; Student in an Organized Health Care Education/Training Program
DX: I10 Essential (primary) hypertension (principal); R42 Dizziness and giddiness; R00.1 Bradycardia, unspecified

== ENCOUNTER 2020-01-22 21:33 | Emergency (ER) | payer OTHER ==
[~2020-01-22] VITALS: Ht 162.5 cm; Wt 111.1 kg
[2020-01-22 21:38] VITALS: BP 158/69
[2020-01-22] MEDS ORDERED: PREDNISONE10 MG PO (21:59)
[2020-02-16] MEDS ORDERED: FLONASE ALLERG9.9 ML NAS (11:38)
[2020-02-16] MEDS ORDERED: ZYRTEC10 M3 PO (11:39)
[2020-02-18] MEDS ORDERED: PROTONIX40 MG PO (11:20)
[2020-02-18] MEDS ORDERED: CARAFATE1 G1 PO (11:20)
== END 2020-01-22 22:30 | disposition home or self-care (01) ==
LOC: ED 21:33
DX: M54.32 Sciatica, left side (principal); I82.402 Acute embolism and thrombosis of unspecified deep veins of left lower extremity; Z88.5 Allergy status to narcotic agent; Z79.899 Other long term (current) drug therapy

== ENCOUNTER → 2020-02-11 | Outpatient (CLI) | payer OTHER ==
[~2020-02-11] MED LIST changes: +CARAFATE1 G1 PO; +FLONASE ALLERG9.9 ML NAS; +PREDNISONE10 MG PO; +PROTONIX40 MG PO; +ZYRTEC10 M3 PO
[2020-02-11 17:28] LABS: CREATININE 0.85 mg/dL (0.55-1.02)
== END | disposition home or self-care (01) ==
LOC: LAB 16:29
PROVIDERS: Orthopaedic Surgery Adult Reconstructive Orthopaedic Surgery; Surgery
DX: Z01.818 Encounter for other preprocedural examination (principal); R10.13 Epigastric pain; K44.9 Diaphragmatic hernia without obstruction or gangrene; D21.4 Benign neoplasm of connective and other soft tissue of abdomen; T84.091A Other mechanical complication of internal left hip prosthesis, initial encounter; T84.093A Other mechanical complication of internal left knee prosthesis, initial encounter

== ENCOUNTER → 2020-02-15 | Outpatient (CLI) | payer OTHER | END | disposition home or self-care (01) | LOC: COVID19 01:26 | DX: Z01.818 Encounter for other preprocedural examination (principal); Z11.59 Encounter for screening for other viral diseases ==

== ENCOUNTER → 2020-02-15 | Outpatient (CLI) | payer OTHER | END | disposition home or self-care (01) | LOC: CT 01:40 | DX: K76.0 Fatty (change of) liver, not elsewhere classified (principal); K42.9 Umbilical hernia without obstruction or gangrene; D21.4 Benign neoplasm of connective and other soft tissue of abdomen; Z90.49 Acquired absence of other specified parts of digestive tract ==

== ENCOUNTER → 2020-02-18 | Day surgery (SDC) | payer OTHER ==
[~2020-02-18] VITALS: Ht 162.5 cm; Wt 111.1 kg
[2020-02-18 10:38] VITALS: BP 131/86
[2020-02-18 11:11] VITALS: BP 120/79
[2020-02-18 11:26] VITALS: BP 121/85
[2020-02-18 11:41] VITALS: BP 120/79
== END | disposition home or self-care (01) ==
LOC: SDC 02-16 08:45
DX: R10.13 Epigastric pain (principal); K29.50 Unspecified chronic gastritis without bleeding; K44.9 Diaphragmatic hernia without obstruction or gangrene; D12.4 Benign neoplasm of descending colon; I10 Essential (primary) hypertension; F41.9 Anxiety disorder, unspecified; F32.9 Major depressive disorder, single episode, unspecified; E03.9 Hypothyroidism, unspecified; Z98.890 Other specified postprocedural states; Z79.899 Other long term (current) drug therapy; Z82.49 Family history of ischemic heart disease and other diseases of the circulatory system; Z82.3 Family history of stroke

== ENCOUNTER → 2020-05-12 | Outpatient (CLI) | payer OTHER | END | disposition home or self-care (01) | LOC: RESCLI 00:48 | PROVIDERS: ATTEND Internal Medicine | DX: I10 Essential (primary) hypertension (principal); F33.9 Major depressive disorder, recurrent, unspecified; E66.01 Morbid (severe) obesity due to excess calories; M79.7 Fibromyalgia; K27.9 Peptic ulcer, site unspecified, unspecified as acute or chronic, without hemorrhage or perforation; E03.9 Hypothyroidism, unspecified; M54.30 Sciatica, unspecified side; E55.9 Vitamin D deficiency, unspecified; J30.2 Other seasonal allergic rhinitis; M19.90 Unspecified osteoarthritis, unspecified site; Z12.31 Encounter for screening mammogram for malignant neoplasm of breast; Z12.4 Encounter for screening for malignant neoplasm of cervix; Z79.899 Other long term (current) drug therapy; Z90.49 Acquired absence of other specified parts of digestive tract; Z98.890 Other specified postprocedural states; Z88.8 Allergy status to other drugs, medicaments and biological substances ==

== ENCOUNTER → 2020-08-12 | Outpatient (CLI) | payer OTHER | END | disposition home or self-care (01) | LOC: RESCLI 00:29 | PROVIDERS: ATTEND Student in an Organized Health Care Education/Training Program | DX: I10 Essential (primary) hypertension (principal); E55.9 Vitamin D deficiency, unspecified; M79.7 Fibromyalgia; M54.30 Sciatica, unspecified side; J30.2 Other seasonal allergic rhinitis; K27.9 Peptic ulcer, site unspecified, unspecified as acute or chronic, without hemorrhage or perforation; F33.9 Major depressive disorder, recurrent, unspecified; M19.90 Unspecified osteoarthritis, unspecified site ==

== ENCOUNTER → 2021-01-06 | Outpatient (CLI) | payer OTHER | END | disposition home or self-care (01) | LOC: MRI 01-02 10:00 | PROVIDERS: ATTEND Orthopaedic Surgery Adult Reconstructive Orthopaedic Surgery | DX: M19.012 Primary osteoarthritis, left shoulder (principal); M19.011 Primary osteoarthritis, right shoulder; M77.8 Other enthesopathies, not elsewhere classified; M75.51 Bursitis of right shoulder; M75.52 Bursitis of left shoulder; R22.33 Localized swelling, mass and lump, upper limb, bilateral ==

== ENCOUNTER → 2021-02-08 | Outpatient (CLI) | payer OTHER ==
[2021-02-08 15:40] LABS: BASO # 0.1 10*3/uL (0.0-0.1); BASO % 1.3 % (0.0-1.0); EOS # 0.2 10*3/uL (0.0-0.4); HEMATOCRIT 46.4 % (37.0-47.0); LYMPH # 3.1 10*3/uL (1.3-4.4); LYMPH % 44.3 % (27.0-41.0); MEAN CELL VOLUME 88.4 fl (81.0-99.0); MEAN CORPUSCULAR HGB 28.8 pg (27.0-31.0); MEAN CORPUSCULAR HGB CONC 32.5 g/dl (33.0-37.0); MEAN PLATELET VOLUME 11.2 fl (9.6-12.3); MONO # 0.5 10*3/uL (0.1-1.0); MONO % 7.1 % (3.0-9.0); NEUT # 3.1 10*3/uL (2.3-7.9); NEUT % 44.2 % (47.0-73.0); PLATELET COUNT AUTOMATED 329 10*3/uL (130-400); RED BLOOD COUNT 5.25 10*6/uL (4.10-5.10); RED CELL DISTRI WIDTH 12.9 % (0-14.5); WHITE BLOOD COUNT 6.9 10*3/uL (4.8-10.8)
[2021-02-08 16:04] LABS: ALBUMIN 3.6 gm/dl (3.1-4.5); ALKALINE PHOSPHATASE 82 U/L (45-117); BILIRUBIN, DIRECT 0.2 mg/dL (0.0-0.2); BUN 13 mg/dl (7-24); CHLORIDE 109 mmol/L (98-107); CREATININE 0.69 mg/dL (0.55-1.02); SGOT/AST 19 IU/L (3-35); SGPT/ALT 29 U/L (12-78); SODIUM 140 mmol/L (136-145); TOTAL PROTEIN 8.2 gm/dL (6.4-8.2)
[2021-02-08 16:36] LABS: VITAMIN D, 25-HYDROXY 20.2 ng/mL (30-100)
== END ==
LOC: RESCLI 06:42
PROVIDERS: Student in an Organized Health Care Education/Training Program; ATTEND Family Medicine
DX: R73.03 Prediabetes (principal); E03.9 Hypothyroidism, unspecified; K76.0 Fatty (change of) liver, not elsewhere classified; J30.2 Other seasonal allergic rhinitis; E78.5 Hyperlipidemia, unspecified; E55.9 Vitamin D deficiency, unspecified; E53.8 Deficiency of other specified B group vitamins; M54.30 Sciatica, unspecified side; I10 Essential (primary) hypertension; K27.9 Peptic ulcer, site unspecified, unspecified as acute or chronic, without hemorrhage or perforation; F33.9 Major depressive disorder, recurrent, unspecified; R51.9 Headache, unspecified; F41.9 Anxiety disorder, unspecified; Z78.0 Asymptomatic menopausal state; Z79.899 Other long term (current) drug therapy

== ENCOUNTER 2021-02-19 12:50 | Emergency (ER) | payer OTHER ==
[~2021-02-19] VITALS: Ht 162.5 cm; Wt 113.4 kg
[2021-02-19 13:07] VITALS: BP 158/74
[2021-02-19 13:55] LABS: BASO # 0.1 10*3/uL (0.0-0.1); EOS # 0.4 10*3/uL (0.0-0.4); EOS % 4.8 % (1.0-4.0); HEMATOCRIT 47.1 % (37.0-47.0); LYMPH # 3.3 10*3/uL (1.3-4.4); LYMPH % 41.5 % (27.0-41.0); MEAN CELL VOLUME 87.9 fl (81.0-99.0); MEAN CORPUSCULAR HGB 28.9 pg (27.0-31.0); MEAN CORPUSCULAR HGB CONC 32.9 g/dl (33.0-37.0); MEAN PLATELET VOLUME 10.8 fl (9.6-12.3); MONO # 0.6 10*3/uL (0.1-1.0); MONO % 7.6 % (3.0-9.0); NEUT # 3.5 10*3/uL (2.3-7.9); NEUT % 44.7 % (47.0-73.0); PLATELET COUNT AUTOMATED 301 10*3/uL (130-400); RED BLOOD COUNT 5.36 10*6/uL (4.10-5.10); RED CELL DISTRI WIDTH 13.3 % (0-14.5); WHITE BLOOD COUNT 7.9 10*3/uL (4.8-10.8)
[2021-02-19 14:09] LABS: BUN 12 mg/dl (7-24); CHLORIDE 107 mmol/L (98-107); CREATININE 0.76 mg/dL (0.55-1.02); POTASSIUM 4.2 mmol/L (3.5-5.1); SODIUM 141 mmol/L (136-145)
== END 2021-02-19 18:18 | disposition home or self-care (01) ==
LOC: ED 12:50
PROVIDERS: Emergency Medicine
DX: R51.9 Headache, unspecified (principal); H53.8 Other visual disturbances; M79.7 Fibromyalgia; F32.9 Major depressive disorder, single episode, unspecified; K21.9 Gastro-esophageal reflux disease without esophagitis; I10 Essential (primary) hypertension; E03.9 Hypothyroidism, unspecified; E66.9 Obesity, unspecified; Z88.5 Allergy status to narcotic agent; Z79.899 Other long term (current) drug therapy; Z86.718 Personal history of other venous thrombosis and embolism; Z86.711 Personal history of pulmonary embolism; Z98.890 Other specified postprocedural states; Z90.49 Acquired absence of other specified parts of digestive tract; Z90.89 Acquired absence of other organs; Z96.652 Presence of left artificial knee joint

== ENCOUNTER → 2022-01-05 | Outpatient (CLI) | payer OTHER | END | disposition home or self-care (01) | LOC: RESCLI 01:36 | PROVIDERS: ATTEND Internal Medicine | DX: F33.9 Major depressive disorder, recurrent, unspecified (principal); J30.2 Other seasonal allergic rhinitis; E03.9 Hypothyroidism, unspecified; M54.30 Sciatica, unspecified side; E55.9 Vitamin D deficiency, unspecified; I10 Essential (primary) hypertension; Z12.31 Encounter for screening mammogram for malignant neoplasm of breast; G47.30 Sleep apnea, unspecified; N23 Unspecified renal colic; Z78.0 Asymptomatic menopausal state; Z79.899 Other long term (current) drug therapy ==

== ENCOUNTER → 2022-06-05 | Outpatient (CLI) | payer OTHER ==
[2022-06-05 12:51] LABS: BILIRUBIN Negative (Negative); BLOOD Negative (Negative); CLARITY Clear (Clear); COLOR Yellow (Yellow); GLUCOSE Negative (Negative); KETONE Trace (Negative); LEUKO ESTERASE Negative (Negative); NITRITE Negative (Negative); SPECIFIC GRAVITY 1.025 (1.001-1.030)
[2022-06-05 12:52] LABS: BASO # 0.1 10*3/uL (0.0-0.1); BASO % 0.9 % (0.0-1.0); EOS # 0.3 10*3/uL (0.0-0.4); EOS % 3.8 % (1.0-4.0); HEMATOCRIT 46.2 % (37.0-47.0); LYMPH # 3.7 10*3/uL (1.3-4.4); LYMPH % 43.3 % (27.0-41.0); MEAN CELL VOLUME 88.8 fl (81.0-99.0); MEAN CORPUSCULAR HGB 29.2 pg (27.0-31.0); MEAN CORPUSCULAR HGB CONC 32.9 g/dl (33.0-37.0); MEAN PLATELET VOLUME 11.5 fl (9.6-12.3); MONO # 0.6 10*3/uL (0.1-1.0); MONO % 7.4 % (3.0-9.0); NEUT # 3.8 10*3/uL (2.3-7.9); NEUT % 44.4 % (47.0-73.0); PLATELET COUNT AUTOMATED 300 10*3/uL (130-400); RED CELL DISTRI WIDTH 13.3 % (0-14.5); WHITE BLOOD COUNT 8.5 10*3/uL (4.8-10.8)
[2022-06-05 13:11] LABS: CHLORIDE 111 mmol/L (98-107); POTASSIUM 4.1 mmol/L (3.5-5.1); SODIUM 140 mmol/L (136-145)
[2022-06-05 13:21] LABS: ALKALINE PHOSPHATASE 72 U/L (45-117); BUN 14 mg/dl (7-24); CHOLESTEROL 207 mg/dL (<200); CREATININE 0.79 mg/dL (0.55-1.02); FREE T4 1.15 ng/dl (0.76-1.46); LDL CHOLESTEROL 141 mg/dL (9-159); SGOT/AST 34 IU/L (3-35); SGPT/ALT 46 U/L (12-78); TRIGLYCERIDES 124 mg/dl (<150)
[2022-06-05 13:36] LABS: BACTERIA 2+; MUCOUS 2+
[2022-06-05 14:18] LABS: VITAMIN D, 25-HYDROXY 10.2 ng/mL (30-100)
== END | disposition home or self-care (01) ==
LOC: RESCLI 10:11
PROVIDERS: Internal Medicine; ATTEND Internal Medicine
DX: R00.1 Bradycardia, unspecified (principal); F33.9 Major depressive disorder, recurrent, unspecified; I10 Essential (primary) hypertension; E03.9 Hypothyroidism, unspecified; K27.9 Peptic ulcer, site unspecified, unspecified as acute or chronic, without hemorrhage or perforation; H61.20 Impacted cerumen, unspecified ear; E55.9 Vitamin D deficiency, unspecified; E66.01 Morbid (severe) obesity due to excess calories; R42 Dizziness and giddiness; M54.2 Cervicalgia; M54.6 Pain in thoracic spine; M79.7 Fibromyalgia; Z88.8 Allergy status to other drugs, medicaments and biological substances; Z90.49 Acquired absence of other specified parts of digestive tract; Z98.890 Other specified postprocedural states

== ENCOUNTER → 2022-10-29 | Outpatient (CLI) | payer OTHER | END | disposition home or self-care (01) | LOC: LAB 01:16 → CT 09:00 → LAB 09:00 | PROVIDERS: ATTEND Surgery | DX: K76.0 Fatty (change of) liver, not elsewhere classified (principal); J84.10 Pulmonary fibrosis, unspecified; R16.0 Hepatomegaly, not elsewhere classified; K42.9 Umbilical hernia without obstruction or gangrene; M47.816 Spondylosis without myelopathy or radiculopathy, lumbar region ==

== ENCOUNTER → 2023-02-12 | Outpatient (CLI) | payer OTHER ==
[2023-02-12 12:34] LABS: HEMATOCRIT 44.1 % (37.0-47.0); MEAN CELL VOLUME 89.6 fl (81.0-99.0); MEAN CORPUSCULAR HGB 29.1 pg (27.0-31.0); MEAN CORPUSCULAR HGB CONC 32.4 g/dl (33.0-37.0); MEAN PLATELET VOLUME 11.1 fl (9.6-12.3); RED BLOOD COUNT 4.92 10*6/uL (4.10-5.10); RED CELL DISTRI WIDTH 13.6 % (0-14.5); WHITE BLOOD COUNT 6.4 10*3/uL (4.8-10.8)
[2023-02-12 13:03] LABS: ALKALINE PHOSPHATASE 68 U/L (46-116); BUN 12 mg/dl (9-23); CHLORIDE 106 mmol/L (98-107); CHOLESTEROL 181 mg/dL (<200); LDL CHOLESTEROL 108 mg/dL (9-159); POTASSIUM 3.9 mmol/L (3.4-5.1); SGPT/ALT 39 U/L (10-49); TOTAL PROTEIN 7.4 gm/dL (6.0-8.0); TRIGLYCERIDES 187 mg/dl (<150)
[2023-02-13 05:06] LABS: HEPATITIS A AB, TOTAL Negative (Negative); HEPATITIS B SURFACE AB Non Reactive (.); HEPATITIS B SURFACE AG Negative (Negative)
== END | disposition home or self-care (01) ==
LOC: LAB 12:04
PROVIDERS: ATTEND Nurse Practitioner Family
DX: K76.0 Fatty (change of) liver, not elsewhere classified (principal)

== ENCOUNTER → 2023-08-03 | Outpatient (CLI) | payer OTHER ==
[2023-08-03 09:28] LABS: BASO # 0.1 10*3/uL (0.0-0.1); BASO % 1.5 % (0.0-1.0); EOS # 0.3 10*3/uL (0.0-0.4); EOS % 4.1 % (1.0-4.0); HEMATOCRIT 47.5 % (37.0-47.0); LYMPH # 3.4 10*3/uL (1.3-4.4); LYMPH % 46.4 % (27.0-41.0); MEAN CELL VOLUME 89.3 fl (81.0-99.0); MEAN CORPUSCULAR HGB 29.1 pg (27.0-31.0); MEAN CORPUSCULAR HGB CONC 32.6 g/dl (33.0-37.0); MEAN PLATELET VOLUME 10.7 fl (9.6-12.3); MONO # 0.5 10*3/uL (0.1-1.0); MONO % 7.1 % (3.0-9.0); NEUT % 40.6 % (47.0-73.0); PLATELET COUNT AUTOMATED 301 10*3/uL (130-400); RED BLOOD COUNT 5.32 10*6/uL (4.10-5.10); RED CELL DISTRI WIDTH 13.3 % (0-14.5); WHITE BLOOD COUNT 7.4 10*3/uL (4.8-10.8)
== END | disposition home or self-care (01) ==
LOC: LAB 09:05
PROVIDERS: ATTEND Orthopaedic Surgery Adult Reconstructive Orthopaedic Surgery
DX: T84.52XA Infection and inflammatory reaction due to internal left hip prosthesis, initial encounter (principal); Y84.9 Medical procedure, unspecified as the cause of abnormal reaction of the patient, or of later complication, without mention of misadventure at the time of the procedure; Y92.89 Other specified places as the place of occurrence of the external cause

== ENCOUNTER → 2023-08-07 | Outpatient (CLI) | payer OTHER ==
[2023-08-07 17:35] LABS: BILIRUBIN Negative (Negative); BLOOD Negative (Negative); CLARITY Clear (Clear); COLOR Yellow (Yellow); GLUCOSE Negative (Negative); KETONE Negative (Negative); LEUKO ESTERASE Trace (Negative); NITRITE Negative (Negative); PH 5.5 (4.5-8.0)
[2023-08-07 17:53] LABS: BACTERIA 1+
== END | disposition home or self-care (01) ==
LOC: RESCLI 16:03
PROVIDERS: Internal Medicine; ATTEND Family Medicine
DX: R30.0 Dysuria (principal)

== ENCOUNTER → 2024-02-05 | Outpatient (CLI) | payer OTHER | END | disposition home or self-care (01) | LOC: RESCLI 02:27 | PROVIDERS: ATTEND Internal Medicine | DX: M79.7 Fibromyalgia (principal); F32.9 Major depressive disorder, single episode, unspecified; F41.9 Anxiety disorder, unspecified; E55.9 Vitamin D deficiency, unspecified; R10.9 Unspecified abdominal pain; Z12.39 Encounter for other screening for malignant neoplasm of breast; I10 Essential (primary) hypertension; Z79.899 Other long term (current) drug therapy; Z82.49 Family history of ischemic heart disease and other diseases of the circulatory system; Z88.8 Allergy status to other drugs, medicaments and biological substances ==